=== PATIENT | male | born 1945 | race Caucasian/White ===

== ENCOUNTER 2020-09-12 14:29 | Inpatient (IN) | payer MEDICARE, SELFPAY ==
[2020-09-12] VITALS (8 sets, daily range): BP systolic 172–200; BP diastolic 79–97; PULSE 73–88; RESP 16–18; TEMP 36.2–37; O2SAT 98–99; BMI 25.0
--- NOTE | 2020-09-12 15:23 | ED_ITS ---
HPI - General Adult General Chief complaint: Recheck/Abnormal Lab/Rx Stated complaint: ABNORMAL MRI Time Seen by Provider: 09/12/20 14:39 Source: patient Mode of arrival: ambulatory Limitations: no limitations History of Present Illness HPI narrative: 75-year-old male with past medical history of right hip replace ment, renal colic here with abnormal MRI. Patient tells me for the last 4-5 weeks he has had intermittent blurry vision. He was seen by his doctor and then by his primary care doctor. His primary care doctor ordered an outpatient MRI which he had this morning. The patient tells me that after his MRI was completed he was sent from the department to the emergency department for further evaluation. The patient denies any dizziness, headache, nausea, vomiting, vision changes at this time. He tells me that the vision changes occur intermittently and are blurry. Onset (ago): week(s) Radiation: non-radiation Relieving factors: none Exacerbating factors: none Associated symptoms: denies other symptoms Treatments prior to arrival: none Related Data Home Medications Medication Instructions Recorded Confirmed fluorometholone 1 drp OPHTHALMIC (EYE) BID PRN 09/12/20 09/12/20 Allergies Allergy/AdvReac Type Severity Reaction Status Date / Time No Known Allergies Allergy Mild NO Verified 09/12/20 14:53 Review of Systems Review of Systems: Yes all other systems are reviewed and are negative Constitutional: Constitutional: Reports no additional constitutional complaints, Denies body ache(s), Denies chills, Denies fever(s), Denies headache(s) and Denies weakness Eyes: Eyes: Reports no additional eye complaints, Reports blurry vision, Reports change in vision, Denies decreased night vision, Denies diplopia, Denies eye discharge, Denies loss of peripheral vision, Denies loss of vision and Denies other visual disturbances ENT: Reports system reviewed and no additional complaints, except as documented, Denies dizziness, Denies headache(s), Denies nasal congestion, Denies nasal discharge and Denies neck pain Cardiovascular: Cardiovascular: Reports no additional cardiovascular complaints, Denies chest pain, Denies leg edema and Denies dyspnea Respiratory: Respiratory: Reports no additional respiratory complaints, Denies cough and Denies dyspnea Gastrointestinal: Gastrointestinal: Reports no additional gastrointestinal complaints, Denies abdominal pain, Denies diarrhea, Denies nausea and Denies vomiting Genitourinary: Genitourinary: Denies urinary incontinence Musculoskeletal: Musculoskeletal: Reports no additional musculoskeletal complaints, Denies back pain, Denies arthralgias, Denies joint swelling, Denies neck pain, Denies numbness and Denies tingling Integumentary/Breasts: Skin/Breast: Reports system reviewed and no additional complaints, except as docu and Denies rash Neurologic: Reports system reviewed and no additional complaints, except as documented, Denies Abnormal speech present, Denies dizziness, Denies headache(s), Denies loss of vision, Denies numbness, Denies tingling and Denies weakness [facility] Past Medical History Attestation statement: The following information was validated with the patient. Source: obtained from family and nursing notes reviewed Medical History (Updated 09/12/20 @ 16:16 by Savannah Aquino NP) Hip replacement planned Renal colic Social History Social History Smoked in Last 30 Days: No Use of substances other than those prescribed or required for medical reasons: No Advance Directives: No Advance Directives Information Provided: Yes Physical Exam Vital Signs: Vital Signs: Last Vital Signs Temp 98.6 F 09/12/20 14:50 Pulse 78 09/12/20 15:45 Resp 16 09/12/20 15:45 BP 172/79 H 09/12/20 15:45 Pulse Ox 98 09/12/20 15:45 Body Mass Index 25.0 Const: General: cooperative, healthy appearing, comfortable and no acute distress Orientation/consciousness: patient oriented x3 Limitations: no limitations HENMT: Head: Yes normal to inspection Ears: hearing grossly normal bilaterally General nose exam: Normal external nose present Face and sinus: Yes normal facial exam Mouth: Normal oral and palatal mucosa present Throat: Yes posterior oropharynx normal Eyes: General: appearance normal, both eyes and all related structures Visual Pradhan: normal visual pradhan by confrontation Alignment and Position: alignment normal Eyelids: Yes eyelids normal Conjunctivae: conjunctivae normal Sclerae: sclerae normal Corneas: corneas normal Pupils: Equal, round and reactive pupils present EOM: EOMs intact bilaterally Neck: Neck: Yes normal visual inspection Chest: Chest palpation & inspection: normal inspection of the chest Resp: Effort & Inspection: normal respiratory effort Auscultation: clear to auscultation bilaterally Cardio: Rate: regular rate Rhythm: regular rhythm Peripheral pulses: Peripheral pulses 2+ throughout GI: Inspection: Yes normal to inspection Palpation (GI): Soft to palpation and nontender Auscultation: normal bowel sounds Back/Spine/Pelvis: Thoracic/Lumbar Spine: thoracic and lumbar spine normal to inspection Skin: General skin exam: no rashes or lesions noted Neuro: General: patient oriented x3, no focal motor deficits and normal sensation to monofilament Cranial nerves: Yes CN's II-XII intact bilaterally, Yes Equal, round and reactive pupils present, Yes Bilaterally intact EOM present, Yes Nystagmus not present, Yes Normal facial strength present, Yes Midline tongue present and Yes Normal gag reflex present Cognition (Neuro): normal cognition Speech: No Abnormal speech present Gait exam (Neuro): Normal gait present Motor exam (neuro): 5/5 motor strength present throughout Sensory Exam: Normal double simultaneous stimulation for sensation Coordination: [id number] test normal, [id number] test normal and tandem gait normal Extrem: General: Yes normal to inspection NIH Stroke Scale Internal: Initial- Upon Arrival Level of Consciousness: Alert Level of Consciousness Questions: Answers both questions correctly Level of Consciousness Commands: Performs both tasks correctly Best Gaze: Normal Visual: No visual loss Facial Palsy: Normal Motor Arm (Right): No drift Motor Arm (Left): No drift Motor Leg (Right): No drift Motor Leg (Left): No drift Limb Ataxia: Absent Sensory: Normal Best Language: No aphasia Dysarthia: Normal Extinction and Inattention: No abnormality Score: 0 Course Course Course Narrative: 75-year-old male here with abnormal MRI which was ordered as an outpatient for intermittent episodes of blurry vision over the last 5-6 weeks. Per MRI report 1. Right occipital lobe 1.4cm lesion which demonstrates restricted diffusion, differential considerations include cystic/hemorrhagic metastases, abscess. Recommend evaluation with neurology, consider MRI brain with IV contrast and/or CT noncontrast. 2. Punctuate scattered foci of susceptibility throughout the brain parenchyma, differential considerations include amyloid disease, multiple cavernoma syndrome, old hemorrhagic hemorrahgic metstasis. 3. 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 1530- Patient is neurologically intact. He has no deficits on arrival. He is well appearing stable vital signs. He has some mild hypertension but is very anxious about why he is here. I discussed the patient with Dr. Ridley the neurologist. He recommended admission for further workup. At this time he did not want me to order any additional images but will evaluate the patient as a consult. He does not believe the patient needs requires transfer to a tertiary care center at this time. Labs ordered. Rapid COVID test ordered. Discussed with Dr. Chatman is who accepted admission. 1605-IAN. NSB ordered. Hospitalist to follow. Called imaging center to get copy of disc (administrative secretary left message). Unable to get imaging sent through [facility]. Medical Decision Making Medical Records Medical records reviewed: Yes I reviewed the patient's medical records. Lab Data Lab results reviewed: Yes I reviewed the patient's lab results. Result diagrams: 09/12/20 15:25 09/12/20 15:25 Labs: Lab Results 09/12/20 09/12/20 09/12/20 Range/Units 15:25 15:25 15:25 WBC 10.2 (4.8-10.8) X10*3/uL RBC 4.27 L (4.60-5.80) X10*6/uL Hgb 14.5 (14.0-18.0) g/dl Hct 41.9 L (42-52) % MCV 98.1 H (80-98) fL MCH 34.0 H (27.0-33.0) pg MCHC 34.6 (31.0-36.0) g/dl RDW 11.5 (11.0-16.0) % Plt Count 219 (160-400) X10*3/uL MPV 9.7 (9.4-12.4) fL Immature Gran % (Auto) 0.4 (0.0-0.4) % Neut % (Auto) 75.6 H (45-73) % Lymph % (Auto) 13.4 L (20-40) % [place] % (Auto) 9.1 (2-11) % Eos % (Auto) 1.1 (0-4) % Baso % (Auto) 0.4 (0-2) % Lymph # (Auto) 1.4 (1.2-4.9) X10*3/uL [place] # (Auto) 0.9 (0.1-1.2) X10*3/uL Eos # (Auto) 0.1 (0.0-0.4) X10*3/uL Baso # (Auto) 0.0 (0.0-0.2) X10*3/uL Abs Immat Gran (auto) 0.04 H (0.00-0.03) X10*3/uL Absolute Neuts (auto) 7.8 (2.0-8.3) X10*3/uL Absolute Nucleated RBC 0.000 (0.0-0.012) X10*3/uL Nucleated RBC % (auto) 0.0 (0.0-0.2) /100WBC Sodium 137 (135-145) mmol/L Potassium 4.5 (3.3-5.1) mmol/l Chloride 100 (96-108) mmol/L Carbon Dioxide 28 (22-29) mmol/L Anion Gap 14 (12-20) BUN 31 H (9-16) mg/dL Creatinine 1.85 H (0.5-1.4) mg/dL Estim Creat Clear Calc 31.2 Estimated GFR 36 Random Glucose 88 (60-115) mg/dL Calcium 8.9 (8.4-10.2) mg/dL COVID-19 (DAVID) Negative (Negative) COVID-19 Clin Com See Note Discharge Plan Discharge Clinical Impression: Abnormal MRI of head, IAN (acute kidney injury) Patient Disposition: Admitted As Inpatient
[2020-09-12 15:32] LABS: MANUAL DIFF FLAG NO
[2020-09-12 15:38] LABS: Basophils Percent Auto 0.4 % (0-2); Eosinophils Absolute Auto 0.1 X10*3/uL (0.0-0.4); Eosinophils Percent Auto 1.1 % (0-4); Hematocrit 41.9 % (42-52); Hemoglobin 14.5 g/dl (14.0-18.0); Imm Gran Abs Auto 0.04 X10*3/uL (0.00-0.03); Imm Gran Pct Auto 0.4 % (0.0-0.4); Lymphocytes Absolute Auto 1.4 X10*3/uL (1.2-4.9); Lymphocytes Percent Auto 13.4 % (20-40); Mean Corpuscular HGB Conc 34.6 g/dl (31.0-36.0); Mean Corpuscular Volume 98.1 fL (80-98); Mean Platelet Volume 9.7 fL (9.4-12.4); Monocytes Absolute Auto 0.9 X10*3/uL (0.1-1.2); Monocytes Percent Auto 9.1 % (2-11); Neutrophils Absolute Auto 7.8 X10*3/uL (2.0-8.3); Neutrophils Percent Auto 75.6 % (45-73); Platelet Count 219 X10*3/uL (160-400); Red Blood Count 4.27 X10*6/uL (4.60-5.80); Red Cell Distribution Width 11.5 % (11.0-16.0); White Blood Count 10.2 X10*3/uL (4.8-10.8)
[2020-09-12 15:50] LABS: COVID-19 Test Negative (Negative)
[2020-09-12 15:57] LABS: Anion Gap 14 (12-20); Blood Urea Nitrogen 31 mg/dL (9-16); Calcium 8.9 mg/dL (8.4-10.2); Carbon Dioxide 28 mmol/L (22-29); Chloride 100 mmol/L (96-108); Creatinine Clr Calc Pharmacy 31.2; Estimated Glomerular Filt Rate 36; Glucose Random 88 mg/dL (60-115); Potassium 4.5 mmol/l (3.3-5.1); Sodium 137 mmol/L (135-145)
[2020-09-12] MEDS: 0.9 % Sodium Chloride 1,000 ML 999 ML IV (16:13)
[2020-09-12] MEDS: amLODIPine Besylate 5 MG TABLET PO (16:57)
--- NOTE | 2020-09-12 16:59 | PC.NURSE ---
x1 call for report
--- NOTE | 2020-09-12 17:38 | PC.NURSE ---
x2 call for report, jessica martinez states she will call back
--- NOTE | 2020-09-12 17:43 | PC.NURSE ---
report given to jessica martinez on [facility]
--- NOTE | 2020-09-12 19:05 | HP_ITS ---
DATE OF SERVICE: 09/12/2020 CHIEF COMPLAINT: Abnormal MRI study obtained on 09/12/2020. HISTORY OF PRESENTING ILLNESS: This is a very pleasant 75-year-old gentleman with past medical history significant for remote renal stones as well as history of right hip placement. He has been complaining of 3 weeks of difficulty on focusing while reading where he noticed that the words were moving. Therefore, he was seen by [facility]. He gave him some eyedrops. His symptoms seems to improve a little bit, but since he also developed right-sided lower back pain, he was seen by his primary care physician and he complained to them about the visual symptoms as well as back pain. Therefore, an MRI brain without contrast was obtained. The MRI showed that the patient has 1.4 cm right occipital lobe lesion with a wide differential diagnosis including hemorrhagic metastasis, abscess, further evaluation is recommended with an MRI brain with IV contrast. There are also punctate scattered foci of susceptibility throughout the brain parenchyma. 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 The patient's laboratory data also showed that he had an elevated creatinine of 1.85 with no recent creatinine available. The patient admitted that he has been using Advil twice daily for his lower back pain with good relief in symptoms and sometimes he takes Tylenol and a strong pain medication that he cannot recall the name. Other than that, the patient denies any symptoms of headache, dizziness, no fever, chills. He denies any weight loss. Denies any loss of appetite. He has no other neurological deficits. PAST MEDICAL HISTORY: Significant for history of right hip replacement in July of 2018. He had a right inguinal hernia in November of 2015. He has erectile dysfunction. He has history of sebaceous cyst. He has history of prior kidney stone and lithotripsy. SOCIAL HISTORY: He is a former smoker. He denies alcohol abuse. The patient is a retired pre school teacher. FAMILY HISTORY: There is a family history of coronary artery disease in his brother. The patient's father is a world war 2 . He is diseased. CURRENT MEDICATIONS: He has been using eye drops in both eyes. Does not recall the name. ALLERGIES: THE PATIENT HAS NO KNOWN DRUG ALLERGIES. REVIEW OF SYSTEMS: ETL CONSULTANT: The patient denies any headache, lightheadedness, or dizziness. He denies any visual symptoms at the present time. He denies any complete loss of vision. He denies any blurring of vision. CVS: He denies any chest pain, denies palpitation. RESPIRATORY: He denies any cough or sputum production. GASTROINTESTINAL: He denies any nausea. No vomiting. No weight loss. No change in diet. SKIN: He denies any rashes. MUSCULOSKELETAL: He complains of right lower back discomfort on and off for the last couple of weeks with good relief with analgesics. : He denies any urinary symptoms. LABORATORY DATA: Showed a sodium 137, potassium 4.5, BUN 31, and creatinine 1.85, GFR 36, blood sugar 88. The patient's WBC is 10.2, hematocrit 41.9. MCV elevated at 98. Serology: COVID-19 test is negative. PHYSICAL EXAMINATION: GENERAL: The patient is resting comfortably, does not appear to be in acute distress. VITAL SIGNS: The patient is noted to have elevated blood pressure. On arrival it was 183/97, currently 172/79; his pulse is 78; respiratory rate 16; he is afebrile with a finger oximetry of 98 on room air. HEENT: Pupils equal, round, and reactive to light and accommodation. Extraocular muscles intact. Anicteric sclerae. NECK: Supple. No JVD. LUNGS: Clear to auscultation bilaterally. HEART: Regular rate rhythm with no murmur, regurg or gallop. ABDOMEN: Soft, nontender. Bowel sounds are audible. No guarding, no rigidity. EXTREMITIES: Without clubbing, cyanosis, or edema. SKIN: Without any rashes. NEUROLOGIC: Nonfocal. Speech is clear. No pronator drift. Normal strength both upper and lower extremities. SKIN: With no rash. ASSESSMENT AND PLAN: This is a 75-year-old gentleman with past medical history significant for kidney stones, who presented to [facility] with 3 weeks history of unable to focus while reading due to words moving with no loss of vision. No other neuro deficit. The patient's workup including an MRI revealed that the patient has 1.4 cm lesion at the right occipital lobe. The patient laboratory data showed that he is in acute renal failure and vitals are suggestive of elevated blood pressure. PROBLEM LIST: 1. Acute kidney injury. The patient's acute kidney injury is likely related to use of NSAIDs, question longstanding uncontrolled hypertension , will obtain abdominal ultrasound to rule out obstruction. The patient will be treated with IV fluid. We will avoid all NSAIDs and nephrotoxic medications. We will treat the patient's blood pressure and follow renal function closely, will consult Nephrology with no improvement in renal function. 2. Hypertension. The patient has no diagnosis of hypertension. If blood pressure remains elevated, patient will be placed on Norvasc and follow blood pressure closely. 3. Right occipital lobe lesion with difficulty focusing. We will await neurological input for further testing. We will hold off on MRI brain with IV contrast due to acute renal failure. will follow renal function closely. 4. Deep vein thrombosis prophylaxis. The patient will be placed on compression boots. 5. Right-sided lower back pain. Currently, patient is asymptomatic. We will use Tylenol and oxycodone for severe pain. We will check a urinalysis with prior history of kidney stone , check a renal ultrasound for obstruction, If UA is positive, then we will proceed with further testing. MD JENNA Mackay/NICOLAS / [id number] MTDD
[2020-09-12] MEDS: hydrALAZINE HCl 25 MG TABLET PO (20:15)
[2020-09-12] MEDS: Flu Vacc QS2020-21(6mos up)/PF 0.5 ML SYRINGE IM (20:17)
[2020-09-12] MEDS: 0.9 % Sodium Chloride Flush 3 ML SYRINGE IVFLUSH (20:17)
[2020-09-13] VITALS (10 sets, daily range): BP systolic 149–179; BP diastolic 65–88; PULSE 73–97; RESP 17–18; TEMP 36–36.6; O2SAT 97–100
--- NOTE | 2020-09-13 | CT_ITS ---
EXAMINATION: CT ABDOMEN AND PELVIS WITHOUT CONTRAST CLINICAL INFORMATION: Right hydronephrosis COMPARISON: Ultrasound earlier the same day. CT 10/07/2008 TECHNIQUE: Multidetector volumetric imaging was performed from the superior aspect of the liver through the pubic symphysis. Sagittal and coronal reformatted images were obtained on the technologist's workstation. This CT examination was performed using dose optimization techniques as appropriate, variously including the following: *Automated exposure control *Adjustment of mA and/or kV according to patient size (this includes techniques or standardized protocols for targeted exams where dose is matched to indication/reason for exam; i.e. extremities or head) *Use of iterative reconstruction technique DLP: 566 mGy-cm FINDINGS: The lack of intravenous contrast limits evaluation of the solid visceral organs including the liver, spleen, pancreas, and kidneys. LUNG BASES: The visualized lung bases are unremarkable. LIVER, GALLBLADDER, AND BILIARY TREE: There are coarse calcifications inferiorly in the right lobe of liver. Limited noncontrast evaluation shows no gross focal liver lesion or biliary ductal dilatation. The gallbladder is unremarkable with no evidence of radiopaque gallstones, gallbladder wall thickening, or obvious pericholecystic inflammatory changes. PANCREAS: Limited non-contrast evaluation is normal. No tess-pancreatic fluid. SPLEEN: Limited non-contrast evaluation is normal. ADRENAL GLANDS: Normal; no adrenal mass. KIDNEYS AND URETERS: Multiple bilateral renal calculi are present the largest on the right is a 6 mm right mid-upper renal calculus. Largest on the left measures 4 mm. There is moderate right hydroureteronephrosis with the dilated right proximal ureter followed to a 6 mm transaxial by 7 mm craniocaudal right proximal ureteral calculus. GASTROINTESTINAL TRACT: The stomach and small bowel are nondilated. There is severe sigmoid diverticulosis. No evidence of colitis or diverticulitis. Appendix not seen but there are no right lower quadrant inflammatory changes. ABDOMINAL WALL: No hernia seen. LYMPH NODES: No pathologically enlarged lymph nodes in the abdomen or pelvis. VASCULAR: Normal caliber abdominal aorta. Circumferential calcified atherosclerotic changes are present. BLADDER: No calculi. No focal wall thickening. PELVIC VISCERA: Coarse calcifications in the prostate. The prostate is enlarged measuring 5 x 3.6 cm. OSSEOUS STRUCTURES: Multilevel degenerative changes. No acute or suspicious osseous abnormality. Right total hip arthroplasty. CT/CT abdomen pelvis wo con IMPRESSION: 6 mm transaxial by 7 mm craniocaudal obstructing right proximal ureteral calculus results in moderate right hydroureteronephrosis. Additional bilateral nonobstructing renal calculi are seen, a 6 mm on the right, 4 mm on the left. Stone to skin distance on the right is 9.3 cm, 12.5 cm on the left. The ureteral calculus as density 1135 Hounsfield units.
--- NOTE | 2020-09-13 | US_ITS ---
EXAMINATION: US RETROPERITONEAL LIMITED (RENAL ONLY) CLINICAL INFORMATION: Flank pain. COMPARISON: Previous CT of the abdomen and pelvis September 2008 TECHNIQUE: Grayscale and color imaging of the kidneys FINDINGS: RIGHT KIDNEY: 10.9 x 6.4 x 6.9 cm (SAG x AP x TRV). The kidney is normal in size, contour, and echogenicity. Renal cortical thickness is normal. There are multiple right renal stones measuring 7 mm in the upper pole, 5 x 6 mm in the midpole and 2 x 3 mm in the midpole. There is moderate right hydronephrosis. No renal mass is seen. LEFT KIDNEY: 11.7 x 5 x 4.9 cm (SAG x AP x TRV). The kidney is normal in size, contour, and echogenicity. Renal cortical thickness is normal. No calculi or focal parenchymal lesions. No hydronephrosis. A right ureteral jet is not seen in the bladder. A left ureteral jet is seen. There are gallstones. US/US renal BI IMPRESSION: Right renal stones. Moderate right hydronephrosis. Normal left kidney.
[2020-09-13 06:52] LABS: Prothrombin Time 11.4 SEC (10.8-13.0)
[2020-09-13 07:06] LABS: Anion Gap 12 (12-20); Blood Urea Nitrogen 27 mg/dL (9-16); Calcium 8.9 mg/dL (8.4-10.2); Carbon Dioxide 29 mmol/L (22-29); Chloride 104 mmol/L (96-108); Creatinine Clr Calc Pharmacy 31.6; Estimated Glomerular Filt Rate 36; Glucose Random 80 mg/dL (60-115); Potassium 4.7 mmol/l (3.3-5.1); Sodium 140 mmol/L (135-145)
[2020-09-13] MEDS: hydrALAZINE HCl 25 MG TABLET PO ×3 (07:50→20:49)
[2020-09-13] MEDS: 0.9 % Sodium Chloride Flush 3 ML SYRINGE IVFLUSH ×3 (07:50→23:55)
[2020-09-13] MEDS: amLODIPine Besylate 5 MG TABLET PO (09:34)
--- NOTE | 2020-09-13 09:56 | MHC.CM.PN ---
IMM 09/13/20 MALE 75 DX OCCIPITAL LESION. Pt has been a very active 75 yr old. He reports golfing several times a week. The Patient reports a few weeks ago he began to have visual changes. He is also reporting back pain. Pt is scheduled for .S. today to R/O renal stones. MRI with contrat of Brain is on hold due to renal function. Provided HCP info, document complete and on file. DP home no services F/O with Neuro. His family will provide transport to home at [place]. CM will follow.
[2020-09-13] MEDS: Acetaminophen 325 MG TABLET 650 MG PO ×2 (11:04→20:46)
[2020-09-13 11:29] LABS: Glucose Urine UA NEG (NEG); Leukocyte Esterase Urine NEG (NEG); Nitrite Urine NEG (NEG); Urine Blood NEG (NEG); Urine Ketones NEG (NEG); Urine Protein NEG (NEG-TRACE)
[2020-09-13 11:30] LABS: Appearance Urine CLEAR; Color Urine YELLOW
--- NOTE | 2020-09-13 14:55 | PM.PNNEP ---
Subjective Subjective Date of Service: 09/13/20 Interval history: Patient seen and examined full consult dictated Physical Exam Vital Signs: Vital Signs: Last Vital Signs Temp 97.5 F 09/13/20 10:53 Pulse 90 09/13/20 10:53 Resp 18 09/13/20 10:53 BP 150/83 H 09/13/20 10:53 Pulse Ox 100 09/13/20 10:53 Body Mass Index 25.0 Assessment & Plan Assessment and plan (1) IAN (acute kidney injury): Status: Acute (2) Hydronephrosis: Status: Acute Assessment and Plan: IAN multifactorial: -NSAID nephrotoxicity -obstructive uropathy kidney US showed moderate hydronephrosis ? nephrolithiasis unknown baseline serum creatinine REC urology evaluation CT scan of the abdomen follow kidney function and electrolytes Time Spent With Patient Time: Total time spent is greater than 50% in coordination of care (as documented) at patient's floor/unit and/or counseling patient:
--- NOTE | 2020-09-13 15:58 | P.PNIM_ITS ---
Subjective Subjective Date of Service: 09/13/20 Interval History: patient offers no acute complaints, concerns that he never had high blood pressure before, denies visual symptoms , no headache, no weakness. Review of Systems General no headache, no dizziness no fever, chills. CVS no chest pain, no palpitation. Respiratory no cough, no shortness of breath. Gastrointestinal no nausea, no vomiting, no abdominal pain Physical Exam Vital Signs: Vital Signs: Last Vital Signs Temp 97.8 F 09/13/20 15:49 Pulse 82 09/13/20 15:50 Resp 18 09/13/20 15:49 BP 162/80 H 09/13/20 15:50 Pulse Ox 97 09/13/20 15:49 Body Mass Index 25.0 General patient resting comfortably,no acute distress. Neck supple, no JVD. CVS regular rate rhythm, Respiratory lungs clear to auscultation, no respiratory distress Gastrointestinal abdomen soft, nontender, bowel sounds audible. Extremities no clubbing, no cyanosis or edema. Neuro nonfocal Skin no rash Objective Data Current Medications Generic Name Dose Route Start Last Admin Trade Name Freq PRN Reason Stop Dose Admin Acetaminophen 650 mg 09/12/20 17:45 09/13/20 11:04 Acetaminophen 325 Mg Tablet PO 650 mg Q6H PRN Administration Pain, Mild (Pain Scale 1-3) Amlodipine Besylate 5 mg 09/13/20 09:00 09/13/20 09:34 Amlodipine Besylate 5 Mg Tablet PO 5 mg DAILY [facility] Administration Protocol Hydralazine HCl 25 mg 09/12/20 21:00 09/13/20 15:50 Hydralazine Hcl 25 Mg Tablet PO 25 mg TID [facility] Administration Protocol Non-Formulary Medication 1 drop 09/12/20 21:00 Fluorometholone EYE-BOTH BID PRN BLURRY VISION Ondansetron HCl 4 mg 09/12/20 17:45 Ondansetron Hcl 4 Mg/2 Ml Vial IVPUSH Q8H PRN Nausea and Vomiting Oxycodone HCl 5 mg 09/12/20 17:45 Oxycodone Hcl Immed Release 5 Mg Tablet PO Q6H PRN Pain, Severe (Pain Scale 7-10) Pharmacy Consult 1 each 09/12/20 15:13 Consult Rx Perform Med Rec MISCELLANE ONCE PRN Consult order Sodium Chloride 3 ml 09/13/20 00:00 09/13/20 15:51 0.9 % Sodium Chloride Flush 3 Ml Syringe IVFLUSH 3 ml QSHIFT ZION Administration Labs CBC & Chem 7: 09/12/20 15:25 09/13/20 05:39 Assessment and Plan (1) Hydronephrosis: Status: Acute (2) IAN (acute kidney injury): Status: Acute (3) Abnormal MRI of head: Status: Acute (4) Hypertension: Status: Acute Assessment and Plan: 1. Acute kidney injury. creatinine unchanged, likely due to use of NSAIDs and an abdominal ultrasound showed right hydronephrosis suggesting obstructive uropathy patient seen by Nephrology, further workup ordered will obtain Urology consultation for right hydro and renal stone, will avoid nephrotoxins and NSAIDs follow renal function. 2. Uncontrolled Hypertension. patient has no diagnosis of hypertension systolic BP significantly elevated around 200 patient started on Norvasc 5 mg and hydralazine 25 mg t.i.d. follow BP closely and will further adjust the medications. 3. Right occipital lobe lesion with difficulty focusing. await neurological input for further testing. We will hold off on MRI brain with IV contrast due to acute renal failure. will follow renal function closely. 4. Right hydronephrosis with intermittent Right-sided lower back pain. Currently, patient is asymptomatic, use Tylenol and oxycodone for severe pain. UA revealed no RBC, renal ultrasound showed right hydronephrosis and renal stone will consult urology. 5. DVT prophylaxis with compression boots
--- NOTE | 2020-09-13 17:04 | P.CNNE_ITS ---
History of Present Illness Data of Consult Service Date: 09/13/20 Primary Care Provider: Erika Mclain MD [facility] Reason for consult: Transient visual disturbance with inability to read This is a generally healthy 75-year-old man with a history of kidney stones and a hip replacement, who stays active plays golf 3 days a week and exercises. He is also an avid reader. In the last 4 or 5 years, he has had a few episodes, averaging 3 or 4 times per year, where his vision was blurred for about 15 or 20 minutes when he was trying to read or he may get some visual distortion when he is trying to drive his golf ball which appears distorted. This is particularly if the weather is hot. These episodes lasted a few minutes and then resolved. 3 weeks ago he noticed a sudden difficulty in reading which persisted longer than usual. He did not see a doctor immediately. Around the same time, he developed symptoms of a right renal colic which he identified as renal stones because he had experienced them 7 years earlier. He has continued to have some minor visual disturbance although most of the vision has improved. In the last few days, while driving he noticed suddenly traffic on the oncoming side to his left was almost on top of him and that was a matter of concern. Yesterday, he had an MRI of the brain on 09/12/20 which showed a 1.5 cm right occipital lobe lesion which showed some hemorrhagic changes and possibly some cystic changes raising the possibility of metastases or abscess. There was a left occipital lesion which appeared to be chronic hemorrhagic with hemosiderin. 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 The actual disc was not available for review. The patient was sent to the [facility] and admitted. He feels fine and is able to read but he feels sometimes the words ge t jumbled and he has some transient visual disturbances off and on. He has no headache. There is no weakness or numbness. He takes no medication at home other than ibuprofen which he has been taking for his hip pain. On admission his BUN/creatinine were elevated but his bloodwork was otherwise unremarkable. Renal ultrasound showed multiple kidney stones in the right kidney and moderate hydronephrosis on the right Review of Systems Constitutional: Constitutional: Denies headache(s) and Denies weakness Eyes: Eyes: Denies loss of vision ENT: Reports Normal hearing present, Denies dizziness and Denies headache(s) Cardiovascular: Cardiovascular: Reports no additional cardiovascular complaints Respiratory: Respiratory: Reports no additional respiratory complaints Gastrointestinal: Gastrointestinal: Reports no additional gastrointestinal complaints Genitourinary: Genitourinary: Reports no additional male genitourinary complaints Musculoskeletal: Musculoskeletal: Denies numbness and Denies tingling Integumentary/Breasts: Skin/Breast: Reports system reviewed and no additional complaints, except as docu Neurologic: Reports system reviewed and no additional complaints, except as documented, Reports Normal hearing present, Denies Abnormal speech present, Denies dizziness, Denies headache(s), Denies loss of vision, Denies numbness, Denies tingling and Denies weakness Psychiatric: Psychiatric: Reports as per HPI Endocrine: Endocrine: Reports no additional endocrine complaints Hematologic/Lymphatic: Hematologic/Lymphatic: Reports no additional hematologic/lymphatic complaints Allergic/Immunologic: Allergic/Immunologic: Reports no additional allergic/immunologic complaints [facility] Past Medical History Medical History (Updated 09/13/20 @ 17:15 by Alyson Louise MD) Hip replacement planned Renal colic Social History Social History Household Members: None Housing: Other Housing Other:: [facility] Do you presently have visiting nurse or other home services: No Smoking Status: Former smoker Tobacco Type: Cigarette Smoked in Last 30 Days: No Use of substances other than those prescribed or required for medical reasons: No Currently Displaying Signs/Symptoms of Drug Intoxication Withdrawal: No Have you been hit, kicked, punched, or otherwise hurt by someone within the past year? If so, by whom?: No Do you feel safe in your current relationship?: No Is there a partner from a previous relationship who is making you feel unsafe now?: No Are you made to feel afraid or neglected: No Advance Directives: No Advance Directives Information Provided: Yes Do you have thoughts of harming others: None Do you have a plan to hurt others: No Plan Recently lost weight without trying: No service: No Current occupational status: retired [employer] Allergies Allergy/AdvReac Type Severity Reaction Status Date / Time No Known Allergies Allergy Mild NO Verified 09/12/20 14:53 Home Medications Medication Instructions Recorded Confirmed Type fluorometholone 1 drp OPHTHALMIC (EYE) BID PRN 09/12/20 09/12/20 History Physical Exam Vital Signs: Vital Signs: Last Vital Signs Temp 97.8 F 09/13/20 15:49 Pulse 82 09/13/20 15:50 Resp 18 09/13/20 15:49 BP 162/80 H 09/13/20 15:50 Pulse Ox 97 09/13/20 15:49 Body Mass Index 25.0 Const: General: cooperative, comfortable, no acute distress, well developed, alert and awake Nutritional Appearance: well nourished Orientation/consciousness: oriented to person, oriented to place and oriented to time Limitations: no limitations HENMT: Head: Yes normal to inspection, Yes normocephalic and Yes atraumatic Ears: hearing grossly normal bilaterally General nose exam: Normal external nose present Face and sinus: Yes normal facial exam Mouth: Normal oral and palatal mucosa present Eyes: General: appearance normal, both eyes and all related structures Visual Pradhan: normal visual pradhan by confrontation Alignment and Position: alignment normal Periorbital: periorbital findings normal Eyelids: Yes eyelids normal Conjunctivae: conjunctivae normal Sclerae: sclerae normal Corneas: corneas normal Pupils: Equal, round and reactive pupils present and Pupil accommodation reflex normal EOM: EOMs intact bilaterally Direct Ophthalmoscopy: normal light reflex Neck: Neck: Yes normal visual inspection, Yes full ROM and Yes no meningeal signs Thyroid: Thyroid normal Carotids: normal carotid upstroke and bounding pulses Chest: Chest palpation & inspection: normal inspection of the chest Resp: Effort & Inspection: normal respiratory effort Auscultation: clear to auscultation bilaterally Cardio: Rate: regular rate Rhythm: regular rhythm Heart sounds: S1 normal heart sound present and S2 normal heart sound present Peripheral pulses: Peripheral pulses 2+ throughout GI: Inspection: Yes normal to inspection Percussion: Yes normal to percussion Auscultation: normal bowel sounds Rectal Exam - Male: Yes deferred Back/Spine/Pelvis: Cervical Spine: normal cervical lordosis and cervical ROM normal Thoracic/Lumbar Spine: thoracic and lumbar spine normal to inspection Skin: General skin exam: no rashes or lesions noted Neuro: General: oriented to person, oriented to place, oriented to time, gait normal, tone normal, moves all extremities, Normal light touch and pain sensation, no meningeal signs, no focal motor deficits, CN's II-XI intact bilaterally, normal sensation to monofilament and deep tendon reflexes 2+ bilaterally Cranial nerves: Yes CN's II-XII intact bilaterally, Yes Equal, round and reactive pupils present, Yes Bilaterally intact EOM present, Yes Nystagmus not present, Yes Normal facial strength present, Yes Midline tongue present, Yes Normal gag reflex present, Yes Symmetric palate elevation present, Yes Normal hearing present and Yes Ability to bilaterally rotate head present Cognition (Neuro): normal cognition Speech: No Abnormal speech present Gait exam (Neuro): Normal gait present Motor exam (neuro): 5/5 motor strength present throughout, Pronator motor function not present, no tremor noted, no asterixis, Motor fasciculations not present, Normal motor muscle tone present throughout and Motor abnormalities not present Sensory Exam: Bilaterally intact graphesthesia Deep tendon reflexes (DTR's): Right triceps reflex intensity grade: 2+, Left triceps reflex intensity grade: 2+, Rt Biceps (C5, C6): 2+, Left biceps reflex intensity grade: 2+, Right brachioradialis reflex intensity grade: 2+, Left brachioradialis reflex intensity grade: 2+, Right patellar reflex intensity grade: 2+, Left patellar reflex intensity grade: 2+, Right ankle reflex intensity grade: 2+ and Left ankle reflex intensity grade: 2+ Plantar Reflex Responses: downgoing: right, left and bilateral Coordination: [id number] test normal, [id number] test normal, tandem gait normal and Romberg test negative Pupils: Normal pupillary reactivity/response: bilateral Extrem: General: Yes normal to inspection, Yes normal exam except as noted and Yes no pedal edema Psych: Appearance: grossly normal Mental Status: mental status grossly normal Speech and movement: Normal speech and movement present and Clear speech present Affect: normal affect Attitude: cooperative Thought process: Normal thought process present Results Labs CBC & Chem 7: 09/12/20 15:25 09/13/20 05:39 Labs: BMP 09/13/20 05:39 Sodium 140 Potassium 4.7 Chloride 104 Carbon Dioxide 29 BUN 27 H Creatinine 1.83 H Calcium 8.9 Urine 09/13/20 Range/Units 10:56 Urine Color YELLOW Urine Appearance CLEAR Urine pH 6.0 (5.0-8.0) Ur Specific [place] 1.020 (1.005-1.025) Urine Protein NEG (NEG-TRACE) MG/DL Urine Glucose (UA) NEG (NEG) MG/DL Assessment and Plan (1) Cerebral hemorrhage: Problem details: Probable occipital lobe hemorrhage 10 which is more recent than 1 chronic suggesting Cerebral amyloid Angiopathy. Other lesion such as a cyst, metastatic or infectious etiology needs to be ruled out although appear less likely Status: Acute Followup MRI of the brain in one month including MRI brainwith gadolinium if his kidney functions have normalized (2) Abnormal MRI of head: Status: Acute Same as above (3) Hypertension: Problem details: Control Status: Acute Monitor and control blood pressure (4) Hydronephrosis: Status: Acute Urology consultation
--- NOTE | 2020-09-13 17:43 | CONS_ITS ---
DATE OF SERVICE: 09/13/2020 HISTORY OF PRESENT ILLNESS: This is a 75-year-old patient with no prior history of kidney disease except for a kidney stone, who presented to the hospital because of an abnormal MRI of the brain and was noted to have elevated serum creatinine. The patient's MRI showed a 1.4 cm right occipital lobe lesion. He denies any nausea, vomiting, or diarrhea. There is no report of chest pain or shortness of breath. He denies any weight loss, any change in color or appearance of the urine, has been no change in his appetite. The patient tells me that he has been taking Advil quite heavily, sometimes taking 3 to 4 tablets a day for at least 3 weeks. Ultrasound of the kidney showed moderate right hydronephrosis. PAST MEDICAL HISTORY: Remarkable for nephrolithiasis, hip replacement, inguinal hernia, erectile dysfunction. MEDICATIONS: Advil. SOCIAL HISTORY: Ex-smoker. FAMILY HISTORY: Negative for kidney disease. REVIEW OF SYSTEMS: 10-point review of systems is negative except as mentioned in the history of present illness. PHYSICAL EXAMINATION: VITAL SIGNS: Blood pressure is 150/83, heart rate 90, respiratory rate 18, temperature 97.5. CONSTITUTIONAL: Looks his stated age, in no acute distress. NEUROLOGIC: Alert, awake. HEENT: Head: Atraumatic and normocephalic. NECK: Supple. LUNGS: Good air entry bilaterally. CARDIOVASCULAR: S1, S2. No rub. ABDOMEN: Soft, nontender. EXTREMITIES: No peripheral edema. LABORATORY DATA: Showed a white count 10.2, hemoglobin 14.5, platelet count 219. Sodium 140, potassium 4.7, chloride 104, CO2 of 29, BUN 27, creatinine 1.83. Urine negative for protein. IMPRESSION: 1. Acute kidney injury. 2. Right hydronephrosis. 3. Nephrolithiasis. This is a patient with elevated serum creatinine consistent with acute kidney injury. I suspect he has acute kidney injury due to nonsteroidal anti-inflammatory drug, nephrotoxicity, in addition to a component of obstructive uropathy as suggested by the kidney ultrasound, which showed evidence for right hydronephrosis. I would avoid the use of NSAID and involve Urology. He would need a CT scan of the abdomen and we will continue to follow closely kidney function and electrolytes. Thank you for allowing me to participate in the care of this patient. Ascencion Fish MD GF/MODL / [id number]
--- NOTE | 2020-09-13 20:56 | MHC.STROKE ---
Addendum entered by Yane Delgado RN 09/13/20 21:04: NIHSS = 0, see Dr. Thompson's note for any additional recommendations. Assessed for Rehab, not indicated. Original Note: LATE ENTRY FOR 09/12/20 WALK-IN 1429. NOTIFIED BY JAYESH SAXENA, SHE CONTACTED DR MONTGOMERY. HE PASSED SWALLOW SCREEN AT 1643 PRIOR TO PO MEDICATION. VTE PROPHYLAXIS WITH COMPRESSION BOOTS 09/13/[address] THOMPSON. HE EXPLAINED THE ? CEREBRAL HEMORRHAGE IN THE OCCIPITAL AREA. STROKE EDUCATION PROVIDED. ALL STROKE MEASURES MET FOR ? HEMORRHAGIC STROKE UNDETERMINED ONSET TIME AND DATE.
[2020-09-14] VITALS (14 sets, daily range): BP systolic 138–172; BP diastolic 71–87; PULSE 71–87; RESP 13–20; TEMP 36.1–36.7; O2SAT 96–100; BMI 25.0
[2020-09-14 06:51] LABS: Anion Gap 11 (12-20); Blood Urea Nitrogen 31 mg/dL (9-16); Calcium 8.7 mg/dL (8.4-10.2); Carbon Dioxide 29 mmol/L (22-29); Chloride 103 mmol/L (96-108); Creatinine Clr Calc Pharmacy 30.9; Estimated Glomerular Filt Rate 35; Glucose Random 95 mg/dL (60-115); Potassium 4.4 mmol/l (3.3-5.1); Sodium 139 mmol/L (135-145)
--- NOTE | 2020-09-14 07:26 | PC.NURSE ---
0320; p: bp elevated 172/87, hr 71 i: Dr. Toribio made aware e: no new orders at this time
[2020-09-14] MEDS: hydrALAZINE HCl 25 MG TABLET PO ×3 (08:27→21:20)
[2020-09-14] MEDS: amLODIPine Besylate 5 MG TABLET PO (08:27)
[2020-09-14] MEDS: 0.9 % Sodium Chloride Flush 3 ML SYRINGE IVFLUSH ×3 (08:27→23:40)
--- NOTE | 2020-09-14 08:52 | PM.UROCN ---
History of Present Illness Consult details Consult date: 09/14/20 Narrative: This is a very pleasant 75-year-old gentleman with past medical history significant for remote renal stones as well as history of right hip placement Admitted to hospital for evaluation with question of cerebral disease. On evaluation found to have obstructing right kidney stone on CT. Elevated creatinine. Creatinine is normalizing with hydration. He required intervention for stones number of years ago. Says that it has been sore for a few days on the right side. We discussed the imaging findings recommendation for intervention with ureteroscopy, retrograde, laser and stent This is the procedure that he had had previously He would like to proceed Review of Systems Constitutional: Constitutional: Denies headache(s) and Denies weakness Eyes: Eyes: Denies loss of vision ENT: Reports Normal hearing present, Denies dizziness and Denies headache(s) Musculoskeletal: Musculoskeletal: Denies numbness and Denies tingling Neurologic: Reports system reviewed and no additional complaints, except as documented, Reports Normal hearing present, Denies Abnormal speech present, Denies dizziness, Denies headache(s), Denies loss of vision, Denies numbness, Denies tingling and Denies weakness [facility] Past Medical History Medical History Hip replacement planned Renal colic Social History Social History Household Members: None Housing: Other Housing Other:: [facility] Do you presently have visiting nurse or other home services: No Smoking Status: Former smoker Tobacco Type: Cigarette Smoked in Last 30 Days: No Use of substances other than those prescribed or required for medical reasons: No Currently Displaying Signs/Symptoms of Drug Intoxication Withdrawal: No Have you been hit, kicked, punched, or otherwise hurt by someone within the past year? If so, by whom?: No Do you feel safe in your current relationship?: No Is there a partner from a previous relationship who is making you feel unsafe now?: No Are you made to feel afraid or neglected: No Advance Directives: No Advance Directives Information Provided: Yes Do you have thoughts of harming others: None Do you have a plan to hurt others: No Plan Recently lost weight without trying: No service: No Current occupational status: retired Meds Allergies Allergy/AdvReac Type Severity Reaction Status Date / Time No Known Allergies Allergy Mild NO Verified 09/12/20 14:53 Home Medications Medication Instructions Recorded Confirmed Type fluorometholone 1 drp OPHTHALMIC (EYE) BID PRN 09/12/20 09/12/20 History Physical Exam Vital Signs: Vital Signs: Last Vital Signs Temp 97.6 F 09/14/20 07:13 Pulse 74 09/14/20 08:27 Resp 18 09/14/20 07:13 BP 138/71 09/14/20 08:27 Pulse Ox 96 09/14/20 07:13 Body Mass Index 25.0 Neuro: Cranial nerves: Yes Normal hearing present Speech: No Abnormal speech present Results Labs Result diagrams: 09/12/20 15:25 09/14/20 05:35 Labs: Abnormal lab results 09/14/20 Range/Units 05:35 Anion Gap 11 L (12-20) BUN 31 H (9-16) mg/dL Creatinine 1.87 H (0.5-1.4) mg/dL BMP 09/14/20 05:35 Sodium 139 Potassium 4.4 Chloride 103 Carbon Dioxide 29 BUN 31 H Creatinine 1.87 H Calcium 8.7 Urine 09/13/20 Range/Units 10:56 Urine Color YELLOW Urine Appearance CLEAR Urine pH 6.0 (5.0-8.0) Ur Specific [place] 1.020 (1.005-1.025) Urine Protein NEG (NEG-TRACE) MG/DL Urine Glucose (UA) NEG (NEG) MG/DL All other labs normal. Multiple bilateral renal calculi are present the largest on the right is a 6 mm right mid-upper renal calculus. Largest on the left measures 4 mm. There is moderate right hydroureteronephrosis with the dilated right proximal ureter followed to a 6 mm transaxial by 7 mm craniocaudal right proximal ureteral calculus. Assessment and Plan (1) Nephrolithiasis: Status: Acute (2) Hydroureteronephrosis: Status: Acute Ureteroscopy We discussed the nature of the decision and reasonable alternatives for performing the above surgery. Interventions include chemical dissolution, ESWL, ureteroscopy with laser lithotripsy and stent placement, PCNL. Options such as medical therapy were discussed. The relative uncertainties and benefits related to each alternate procedure were adequately discussed. General surgical risks including, but not limited to, pain, bleeding, infection, myocardial infarction, pulmonary embolus, deep vein thrombosis and cerebrovascular accident which may result in further hospitalization were discussed. Full disclosure of the procedure as well as all major risks, benefits and complications were discussed including but not limited to damage to the urethra, bladder and kidney infection, damage to the ureter, stent migration or malposition, scarring to the renal pelvis, remnant stone fragments, subsequent stone passage with need for secondary procedures. The overall secondary procedure rate is approximately 10-15%. The success rate of the procedure was discussed. Success of the procedure in the short-term does not necessarily guarantee that long-term success will be maintained. Suitable follow up will need to be maintained. The patient showed understanding of discussion and wishes to proceed with - cystoscopy, retrograde, ureteroscopy, possible lithotripsy/stone basketing and stent on the right side
--- NOTE | 2020-09-14 12:21 | MHC.CM.PN ---
The goal for dc is for Patient to return home. BP is apparently elevated today and MD was made aware. CM will continue to follow for dc planning and to monitor for the need to adjust the dc plan.
--- NOTE | 2020-09-14 13:18 | PM.PNNEP ---
Subjective Subjective Date of Service: 09/14/20 Interval history: seen and examined patient offers no acute complaints Physical Exam Vital Signs: Vital Signs: Last Vital Signs Temp 96.9 F 09/14/20 11:07 Pulse 77 09/14/20 11:07 Resp 20 09/14/20 11:07 BP 138/74 09/14/20 11:07 Pulse Ox 98 09/14/20 11:07 Body Mass Index 25.0 Const: General: no acute distress Neck: Neck: Yes supple Resp: Auscultation: clear to auscultation bilaterally Cardio: Heart sounds: S1 normal heart sound present and S2 normal heart sound present GI: Palpation (GI): Soft to palpation and nontender Extrem: General: Yes no pedal edema Assessment & Plan Assessment and plan (1) IAN (acute kidney injury): Status: Acute (2) Hydronephrosis: Status: Acute Assessment and Plan: kidney function unchanged CT scan of the abdomen confirmed obstruction due to nephrolithiasis IAN multifactorial: -NSAID nephrotoxicity -obstructive uropathy kidney US had showed right moderate hydronephrosis unknown baseline serum creatinine REC ureteral stent per urology follow kidney function and electrolytes Time Spent With Patient Time: Total time spent is greater than 50% in coordination of care (as documented) at patient's floor/unit and/or counseling patient:
--- NOTE | 2020-09-14 14:11 | FL_ITS ---
EXAMINATION: XR FLUOROSCOPY WITH IMAGES CLINICAL INFORMATION: Obstructing right ureteral calculus. COMPARISON: CT abdomen and pelvis noncontrast 09/13/2020 TECHNIQUE: Fluoroscopy performed by Dr. Pascual Gregory. Fluoroscopy time: 1.13 minutes Total Dose: 19.32 mGy Images: 4 FINDINGS: There is guidewire in the right ureter and upper pole collecting system. There is mild right hydronephrosis. Final images show right ureteral stent in position. FL/FL guidance in OR IMPRESSION: Fluoroscopy for urologic procedures.
--- NOTE | 2020-09-14 14:48 | HO.ANESPROP2 ---
[facility]LY [facility] Past Medical History Medical History Hip replacement planned Renal colic Social History Social History Household Members: None Housing: Other Housing Other:: [facility] Do you presently have visiting nurse or other home services: No Smoking Status: Former smoker Tobacco Type: Cigarette Smoked in Last 30 Days: No Use of substances other than those prescribed or required for medical reasons: No Currently Displaying Signs/Symptoms of Drug Intoxication Withdrawal: No Have you been hit, kicked, punched, or otherwise hurt by someone within the past year? If so, by whom?: No Do you feel safe in your current relationship?: No Is there a partner from a previous relationship who is making you feel unsafe now?: No Are you made to feel afraid or neglected: No Advance Directives: No Advance Directives Information Provided: Yes Do you have thoughts of harming others: None Do you have a plan to hurt others: No Plan Recently lost weight without trying: No service: No Current occupational status: retired [employer] Allergies Allergy/AdvReac Type Severity Reaction Status Date / Time No Known Allergies Allergy Mild NO Verified 09/12/20 14:53 Home Medications Medication Instructions Recorded Confirmed Type fluorometholone 1 drp OPHTHALMIC (EYE) BID PRN 09/12/20 09/12/20 History Exam Exam Date and Time: September 14, 2020 1448 Height,Weight and Vital Signs: Height 5 ft 7 in Weight 72.575 kg Last Vital Signs Temp 96.9 F 09/14/20 11:07 Pulse 77 09/14/20 11:07 Resp 20 09/14/20 11:07 BP 138/74 09/14/20 11:07 Pulse Ox 98 09/14/20 11:07 Pertinent Lab Results Pertinent Lab Results: Laboratory Tests 09/12/20 09/12/20 09/12/20 15:25 15:25 15:25 WBC 10.2 RBC 4.27 L Hgb 14.5 Hct 41.9 L MCV 98.1 H MCH 34.0 H MCHC 34.6 RDW 11.5 Plt Count 219 MPV 9.7 Immature Gran % (Auto) 0.4 Neut % (Auto) 75.6 H Lymph % (Auto) 13.4 L [place] % (Auto) 9.1 Eos % (Auto) 1.1 Baso % (Auto) 0.4 Lymph # (Auto) 1.4 [place] # (Auto) 0.9 Eos # (Auto) 0.1 Baso # (Auto) 0.0 Abs Immat Gran (auto) 0.04 H Absolute Neuts (auto) 7.8 Absolute Nucleated RBC 0.000 Nucleated RBC % (auto) 0.0 PT INR Sodium 137 Potassium 4.5 Chloride 100 Carbon Dioxide 28 Anion Gap 14 BUN 31 H Creatinine 1.85 H Estim Creat Clear Calc 31.2 Estimated GFR 36 Random Glucose 88 Calcium 8.9 Urine Color Urine Appearance Urine pH Ur Specific [place] Urine Protein Urine Glucose (UA) Urine Ketones Urine Blood Urine Nitrite Ur Leukocyte Esterase COVID-19 (DAVID) Negative COVID-19 Clin Com See Note 09/13/20 09/13/20 09/13/20 05:39 05:39 10:56 WBC RBC Hgb Hct MCV MCH MCHC RDW Plt Count MPV Immature Gran % (Auto) Neut % (Auto) Lymph % (Auto) [place] % (Auto) Eos % (Auto) Baso % (Auto) Lymph # (Auto) [place] # (Auto) Eos # (Auto) Baso # (Auto) Abs Immat Gran (auto) Absolute Neuts (auto) Absolute Nucleated RBC Nucleated RBC % (auto) PT 11.4 INR 1.0 Sodium 140 Potassium 4.7 Chloride 104 Carbon Dioxide 29 Anion Gap 12 BUN 27 H Creatinine 1.83 H Estim Creat Clear Calc 31.6 Estimated GFR 36 Random Glucose 80 Calcium 8.9 Urine Color YELLOW Urine Appearance CLEAR Urine pH 6.0 Ur Specific [place] 1.020 Urine Protein NEG Urine Glucose (UA) NEG Urine Ketones NEG Urine Blood NEG Urine Nitrite NEG Ur Leukocyte Esterase NEG COVID-19 (DAVID) COVID-19 Clin Com 09/14/20 05:35 WBC RBC Hgb Hct MCV MCH MCHC RDW Plt Count MPV Immature Gran % (Auto) Neut % (Auto) Lymph % (Auto) [place] % (Auto) Eos % (Auto) Baso % (Auto) Lymph # (Auto) [place] # (Auto) Eos # (Auto) Baso # (Auto) Abs Immat Gran (auto) Absolute Neuts (auto) Absolute Nucleated RBC Nucleated RBC % (auto) PT INR Sodium 139 Potassium 4.4 Chloride 103 Carbon Dioxide 29 Anion Gap 11 L BUN 31 H Creatinine 1.87 H Estim Creat Clear Calc 30.9 Estimated GFR 35 Random Glucose 95 Calcium 8.7 Urine Color Urine Appearance Urine pH Ur Specific [place] Urine Protein Urine Glucose (UA) Urine Ketones Urine Blood Urine Nitrite Ur Leukocyte Esterase COVID-19 (DAVID) COVID-19 Clin Com Airway TM Dist: >3cm Neck ROM: Full Denture: Upper Loose/Missing/Broken Teeth: No Assessment and Plan Assessment Anesthesia Assessment: Anesthesia Plan Discussed, PAT Visit and Chart Reviewed Final Anesthetic Review NPO: Yes ASA Class: II Final Preanesthetic Review: No Changes in Pt Med Stat, Meds/Allgs Chart Reviewed, Consent Obtained/Reviewed and Anes Risks/Benef Reviewed Patient Risk: Low Procedure Risk: Low Anesthetic Plan Anesthetic Plan: GA Disposition: Standard PACU
[2020-09-14] MEDS: levoFLOXacin 500 MG TABLET PO (15:10)
--- NOTE | 2020-09-14 15:10 | MHC.SHP ---
Pre-Procedural Eval Section A The patient is an INPATIENT: Yes Changes since office visit: No Cold of Flu in the past 2 weeks, No New Medical Problems, No Changes in Medication and No Patient answered all questions The History & Physical has been completed within 30 days and I have reviewed it.: Yes Section B Chief Complaint: IAN/RIGHT OCCIPITAL LESION Allergies: Allergies Allergy/AdvReac Type Severity Reaction Status Date / Time No Known Allergies Allergy Mild NO Verified 09/12/20 14:53 Plan Patient has been examined and remains a candidate for the planned procedure
--- NOTE | 2020-09-14 15:30 | P.PNIM_ITS ---
Subjective Subjective Date of Service: 09/14/20 Interval History: patient denies lower back pain is still having difficulty with reading although managed to read for 30 minutes, wants to know where he has blockage in the kidneys and has several questions in regard to his occipital lesion. Review of Systems General no headache, no dizziness, no fever chills. CVS no chest pain, no palpitation. Respiratory no cough ,no shortness of breath Gastrointestinal no nausea, no vomiting, no abdominal pain Physical Exam Vital Signs: Vital Signs: Last Vital Signs Temp 98.1 F 09/14/20 14:53 Pulse 87 09/14/20 14:53 Resp 18 09/14/20 14:53 BP 156/86 H 09/14/20 14:53 Pulse Ox 98 09/14/20 14:53 Body Mass Index 25.0 General patient resting comfortably , no acute distress. Neck is supple . CVS regular rate rhythm, Respiratory lungs clear to auscultation, no respiratory distress, no wheeze, no rhonchi. Gastrointestinal abdomen soft, nontender, bowel sounds audible. Extremities no clubbing cyanosis or edema. Neuro nonfocal, patient moving all 4 extremity speech clear. Skin no rash Psych normal affect Objective Data Current Medications Generic Name Dose Route Start Last Admin Trade Name Freq PRN Reason Stop Dose Admin Acetaminophen 650 mg 09/12/20 17:45 09/13/20 20:46 Acetaminophen 325 Mg Tablet PO 650 mg Q6H PRN Administration Pain, Mild (Pain Scale 1-3) Amlodipine Besylate 5 mg 09/13/20 09:00 09/14/20 08:27 Amlodipine Besylate 5 Mg Tablet PO 5 mg DAILY [facility] Administration Protocol Hydralazine HCl 25 mg 09/12/20 21:00 09/14/20 08:27 Hydralazine Hcl 25 Mg Tablet PO 25 mg TID [facility] Administration Protocol Non-Formulary Medication 1 drop 09/12/20 21:00 09/13/20 19:14 Fluorometholone EYE-BOTH 1 drop BID PRN Administration BLURRY VISION Ondansetron HCl 4 mg 09/12/20 17:45 Ondansetron Hcl 4 Mg/2 Ml Vial IVPUSH Q8H PRN Nausea and Vomiting Oxycodone HCl 5 mg 09/12/20 17:45 Oxycodone Hcl Immed Release 5 Mg Tablet PO Q6H PRN Pain, Severe (Pain Scale 7-10) Pharmacy Consult 1 each 09/12/20 15:13 Consult Rx Perform Med Rec MISCELLANE ONCE PRN Consult order Sodium Chloride 3 ml 09/13/20 00:00 09/14/20 08:27 0.9 % Sodium Chloride Flush 3 Ml Syringe IVFLUSH 3 ml QSHIFT ZION Administration Labs CBC & Chem 7: 09/12/20 15:25 09/14/20 05:35 Assessment and Plan (1) Hydroureteronephrosis: Status: Acute (2) Nephrolithiasis: Status: Acute (3) Cerebral hemorrhage: Problem details: Probable occipital lobe hemorrhage 10 which is more recent than 1 chronic suggesting Cerebral amyloid Angiopathy. Other lesion such as a cyst, metastatic or infectious etiology needs to be ruled out although appear less likely Status: Acute (4) Hypertension: Problem details: Control Status: Acute (5) IAN (acute kidney injury): Status: Acute (6) Abnormal MRI of head: Status: Acute Assessment and Plan: 1. Acute kidney injury. creatinine unchanged, likely due to use of NSAIDs and related to obstructive uropathy, patient being followed closely by Nephrology, patient undergoing cystoscopy by Urology this afternoon, will follow renal function at a.m., hold IV fluid, avoid nephrotoxins and NSAIDs 2. Uncontrolled Hypertension. patient has no diagnosis of hypertension, noted t o have significantly elevated blood pressure on arrival therefore patient placed on Norvasc and hydralazine current blood pressure is stable, will discuss blood pressure management with Nephrology upon discharge. 3. Right occipital lobe lesion with difficulty focusing. patient seen by Dr. Louise right occipital lesion we probably is related to hospital lobe hemorrhage rate likely related to cerebral amyloid angiopathy, he recommend follow-up MRI of the brain in 1 month including MRI brain with gadolinium if kidney function normalizes to rule out other possibilities of cyst metastatic or infectious etiology although that seems to be less likely. 4. Right hydronephrosis with intermittent Right-sided lower back pain. CT abdomen and pelvis showed a right proximal ureter stone causing hydronephrosis, consulted urology Dr. Gregory will proceed with cystoscopy this afternoon patient has been kept NPO and informed about the procedure UA revealed no RBC, 5. DVT prophylaxis with compression boots
--- NOTE | 2020-09-14 16:13 | P.BOP_ITS ---
Brief Operative Note Date of Service: 09/14/20 Pre-op diagnosis: 1. right ureteric stone with hydronephrosis 2. multiple right renal stones Post-op diagnosis: same Procedure: 1. cystoscopy with right retrograde 2. dilatation right ureteric orifice under fluoroscopy 3. right ureteroscopy laser lithotripsy of right ureteric stone 4. ureteroscopy and laser lithotripsy of right renal stones with stone basketing 5. right stent placement Implants: right ureteric stent 6 [place] by 24 cm Surgeon: Pascual Gregory MD Anesthesia: GLMA Estimated blood loss (mL): 0 Pathology: other ( stones) Condition: stable Disposition: same day
--- NOTE | 2020-09-14 16:15 | P.OP_ITS ---
Operative Note Operative Note Date of Service: 09/14/20 Narrative: PreOperative Diagnosis: 1. right ureteric stone with hydronephrosis 2. right renal stones Post Operative Diagnosis: same Procedure: - cystoscopy, retrograde - dilatation of ureteric orifice under fluoroscopy - ureteroscopy, laser lithotripsy, stone basketing - laser of right ureteric stone, laser of 3 separate right renal stones in 3 locations - stent placement Surgeon: Dr Pascual Gregory Anesthesia: General Indications for procedure: this is a 75-year-old male. Admitted through the emergency room with a question of a neurologic issue. CT scan had revealed right stones multiple with hydronephrosis of the right proximal ureteric stone. He had had stones previously. Has had previous ureteroscopy. This was explained as required as his creatinine was 1.8. He understands risks and benefits and consents to the procedure. Procedure: After informed consent was verified patient was brought to the operating placed in supine position. Anesthesia was administered per protocol. Patient was placed in modified dorsal lithotomy position and prepped and draped in a sterile fashion. Safety pause time-out and side of surgery confirmed. Antibiotics confirmed. A 21 [place] cystoscope was inserted per urethra. The bladder was normal. Ureteric orifices normal position. the right ureteric orifice was cannulated. A wire placed. Open-ended placed. Retrograde examination performed showing filling defect in the proximal portion of the right proximal ureter. A sensor guidewire was placed to the level of the kidney. The internal cannula from the ureteric access sheath was used to dilate the right ureteric orifice under fluoroscopy. A flexible ureteroscope was placed alongside the wire and the stone was encountered in the upper portion of the ureter. It was imbedded. Using a 250 micron holmium laser fiber the stone was broken into small pieces. Attempt was made to basket except a group of stones came down and they were retrieved after stretching the basket. A flexible ureteroscopy was then placed up to level of the renal pelvis. The renal pelvis examined. Two stones were found in the upper pole. These were broken up each was approximately 6 mm. One stone was son in the mid calyx this was broken up as well approximately 6 mm. Another stone was found in the lower calyx and was broken up is approximately 6 mm. Once the stones being broken into many small pieces a decision was made not to basket as there was concern regarding the diameter of the ureter. A sensor guidewire was placed up to the renal pelvis through the flexible ureteral scope. The access sheath was removed. The wire was backloaded through a regular cystoscope. The regular cystoscope was placed into the bladder. A 6 [place] by 24 cm stent was placed under combination of fluoroscopic and direct visualization. He tolerated the procedure well was extubated in operating room and transferred in stable condition to the recovery area. Pathology: Stones Drains: 6 [place] by 24 cm
[2020-09-14] MEDS: Acetaminophen 325 MG TABLET 650 MG PO ×2 (18:10→23:38)
[2020-09-14] MEDS: Phenazopyridine HCL 100 MG TABLET PO (18:10)
[2020-09-14] MEDS: oxyCODONE HCl Immed Release 5 MG TABLET PO (21:18)
[2020-09-15] VITALS (7 sets, daily range): BP systolic 133–159; BP diastolic 70–82; PULSE 88–93; RESP 15–18; TEMP 36.2–36.7; O2SAT 98–100
[2020-09-15] MEDS: Morphine Sulfate 4 MG/ML CARTRIDGE IVPUSH (01:51)
--- NOTE | 2020-09-15 02:30 | PC.NURSE ---
0045; Patient c/o increasing pain in the groin. Patient reporting he has been voiding a little at a time with hematuria. Encouraged patient to ambulate to the bathroom and attempt to void. Patient attempted and was unsuccessful, reported having the urge but unable to void. Bladder scanned patient for 303 mls, patient attempted to void again, only able to dribble. Hospitalist notified and placed orders for araujo catheter and morphine for pain. Medicated patient for pain, araujo catheter inserted with 300 mls drained right away, hematuria. 0140; Patient resting comfortably, pain significantly improved.
[2020-09-15] MEDS: oxyCODONE HCl Immed Release 5 MG TABLET PO (06:09)
[2020-09-15 07:55] LABS: Blood Urea Nitrogen 31 mg/dL (9-16); Calcium 8.7 mg/dL (8.4-10.2); Creatinine Clr Calc Pharmacy 35.4; Estimated Glomerular Filt Rate 41; Glucose Random 112 mg/dL (60-115)
[2020-09-15] MEDS: hydrALAZINE HCl 25 MG TABLET PO ×2 (08:07→15:13)
[2020-09-15] MEDS: amLODIPine Besylate 5 MG TABLET PO (08:07)
[2020-09-15] MEDS: 0.9 % Sodium Chloride Flush 3 ML SYRINGE IVFLUSH ×2 (08:12→16:07)
[2020-09-15 08:55] LABS: Anion Gap 19 (12-20); Carbon Dioxide 19 mmol/L (22-29); Chloride 105 mmol/L (96-108); Potassium 5.3 mmol/l (3.3-5.1); Sodium 138 mmol/L (135-145)
--- NOTE | 2020-09-15 09:45 | PM.PNNEP ---
Subjective Subjective Date of Service: 09/15/20 Interval history: seen and examined events noted feels better no complaints Physical Exam Vital Signs: Vital Signs: Last Vital Signs Temp 97.9 F 09/15/20 07:27 Pulse 93 09/15/20 07:27 Resp 18 09/15/20 07:27 BP 133/71 09/15/20 07:27 Pulse Ox 100 09/15/20 07:27 Body Mass Index 25.0 Const: General: comfortable Neck: Neck: Yes supple Resp: Auscultation: clear to auscultation bilaterally Cardio: Heart sounds: S1 normal heart sound present and S2 normal heart sound present GI: Palpation (GI): Soft to palpation and nontender Extrem: General: Yes no pedal edema Assessment & Plan Assessment and plan (1) IAN (acute kidney injury): Status: Acute (2) Hydronephrosis: Status: Acute (3) Hyperkalemia: Status: Acute (4) Metabolic acidosis: Status: Acute Assessment and Plan: kidney function better s/p stent placement CT scan of the abdomen confirmed obstruction due to nephrolithiasis IAN multifactorial: -NSAID nephrotoxicity -obstructive uropathy kidney US had showed right moderate hydronephrosis unknown baseline serum creatinine REC sodium polystyrene 15 gram x 1 (ordered) follow kidney function and electrolytes will arrange for outpatient renal follow up if discharged later today Time Spent With Patient Time: Total time spent is greater than 50% in coordination of care (as documented) at patient's floor/unit and/or counseling patient:
[2020-09-15] MEDS: Sodium Polystyrene Sulfon/Sorb 15 GM/60 ML ORAL.SUSP PO (10:43)
--- NOTE | 2020-09-15 12:38 | PC.NURSE ---
araujo was clamped, unclamped araujo to check urine for clots. No clots present, urine is ashley colored. Removed arajuo, pt in bathroom attempting to void.
--- NOTE | 2020-09-15 13:51 | PC.NURSE ---
pt states he has ambulated to bathroom and voided small amount of urine. Bladder was drained prior to catheter removal, pt states he is drinking PO fluid to refill and attempt to void again. HE denies pain with voiding.
--- NOTE | 2020-09-15 15:20 | P.DS_ITS ---
DS: Providers Provider Date of admission: 09/12/20 16:32 Primary care physician: Erika Mclain MD Consults: 09/12/20 17:45 Consult to Neurology Routine Consulting Provider: [facility] Reason for consultation: rt occipital lesion Has provider been notified: Yes 09/13/20 08:43 Consult to Nephrology Routine Consulting Provider: Julien Tse Reason for consultation: ian 09/13/20 15:57 Consult to Urology Routine Consulting Provider: Pascual Gregory Reason for consultation: rt hydronephrosis Has provider been notified: No DS: Diagnosis Discharge Diagnosis (1) IAN (acute kidney injury): Status: Acute (2) Hydronephrosis: Status: Acute (3) Hyperkalemia: Status: Acute (4) Metabolic acidosis: Status: Acute DS: Medications Discharge Medications Home Medications: Home Medications Medication Instructions Recorded Confirmed fluorometholone 1 drp OPHTHALMIC (EYE) BID PRN 09/12/20 09/12/20 DS: Summary Hospital Course Hospital Course: History of presenting illness 75-year-old gentleman with past medical history significant for remote renal stones as well as history of right hip placement. He has been complaining of 3 weeks of difficulty on focusing while reading where he noticed that the words were moving. Therefore, he was seen by Maintenance Coordinator. He gave him some eyedrops. His symptoms seems to improve a little bit, but since he also developed right-sided lower back pain, he was seen by his primary care physician and he complained to them about the visual symptoms as well as back pain. Therefore, an MRI brain without contrast was obtained. The MRI showed that the patient has 1.4 cm right occipital lobe lesion with a wide differential diagnosis including hemorrhagic metastasis, abscess, further evaluation is recommended with an MRI brain with IV contrast. There are also punctate scattered foci of susceptibility throughout the brain parenchyma. 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 The patient's laboratory data also showed that he had an elevated creatinine of 1.85 with no recent creatinine available. The patient admitted that he has been using Advil twice daily for his lower back pain with good relief in symptoms and sometimes he takes Tylenol and a strong pain medication that he cannot recall the name. Other than that, the patient denies any symptoms of headache, dizziness, no fever, chills. He denies any weight loss. Denies any loss of appetite. He has no other neurological deficits. hospital course 1. Acute kidney injury. 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 2. Uncontrolled Hypertension. patient has no diagnosis of hypertension, noted to have significantly elevated blood pressure on arrival therefore patient placed on Norvasc and hydralazine current blood pressure is stable, will discharge patient home on Norvasc 5 mg daily. 3. Right occipital lobe lesion with difficulty focusing. patient seen by Dr. 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 4. Right hydronephrosis with intermittent Right renal colic. CT abdomen and pelvis showed a right proximal ureter stone causing hydronephrosis, renal stone, patient seen by Dr. Gregory and underwent cystoscopy and underwent laser stone removal, stent placement and renal stones were broken down, postprocedure patient developed abdominal pain and had difficulty voiding of Marley catheter was placed patient was treated with pain medication, subsequently Marley catheter removed patient is voiding with no difficulty. Time Spent with Patient Time attestation: Total time spent providing and/or coordinating discharge services: Physical Exam Vital Signs: Vital Signs: Last Vital Signs Temp 97.1 F 09/15/20 15:09 Pulse 88 09/15/20 15:13 Resp 15 09/15/20 15:09 BP 146/81 H 09/15/20 15:13 Pulse Ox 98 09/15/20 15:09 Body Mass Index 25.0 General patient resting comfortably in no acute distress. Neck is supple no JVD. CVS regular rate rhythm, Respiratory lungs clear to auscultation, no respiratory distress, no wheeze, no rhonchi. Gastrointestinal abdomen soft, nontender, bowel sounds audible, no guarding , no rigidity. Extremities no clubbing cyanosis or edema. back no CVA tenderness Neuro nonfocal patient moving all 4 extremity speech clear. Skin no rash DS: Data Data Completed and Pending Pending studies at discharge: Pending at discharge 09/14/20 16:27 Surgical [PTH] Routine Labs on day of discharge: 09/12/20 15:25 Basic Metabolic Panel Stat COVID-19 ID NOW ([place]) Stat Complete Blood Count Auto Diff Stat 09/12/20 16:01 0.9 % Sodium Chloride [Ns] 1,000 ml IV 999 mls/hr 09/12/20 16:27 Transfer Order Routine 09/12/20 16:43 amLODIPine Besylate [Norvasc] 5 mg PO ONCE ONE 09/12/20 17:45 0.9 % Sodium Chloride [Ns] 1,000 ml IVCONT 100 mls/hr 09/12/20 Dinner Regular Diet 09/12/20 20:00 Flu Vacc [id number](6mos up)/PF [Fluarix Quad [id number]] 0.5 ml IM .ONCE ONE 09/13/20 CT abdomen pelvis wo con Routine US renal BI Routine 09/13/20 05:39 Basic Metabolic Panel DAILY@0600 Prothrombin Time INR DAILY@0600 09/13/20 10:56 UA CC w/rflx Micro + Cult Urgent 09/14/20 05:35 Basic Metabolic Panel Routine 09/14/20 14:11 FL guidance in OR Routine 09/14/20 14:15 iohexoL 300 MG/ML [Omnipaque 300 MG/ML] 50 ml IV .STK-MED ONE 09/14/20 14:53 levoFLOXacin [Levaquin] 500 mg PO ONCE ONE 09/14/20 15:09 levoFLOXacin [Levaquin] 500 mg .ROUTE .STK-MED ONE Transfer Order Routine 09/14/20 16:19 Acetaminophen [Tylenol] 650 mg PO ONCE ONE Phenazopyridine HCL [Pyridium] 100 mg PO ONCE ONE 09/14/20 16:27 Transfer Order Routine 09/15/20 01:28 Morphine Sulfate 4 mg IVPUSH ONCE ONE 09/15/20 06:16 Basic Metabolic Panel Routine 09/15/20 09:48 Sodium Polystyrene Sulfon/Sorb [Kayexalate] 15 gm PO ONCE ONE Laboratory Last Values WBC 10.2 X10*3/uL (4.8-10.8) 09/12/20 15:25 RBC 4.27 X10*6/uL (4.60-5.80) L 09/12/20 15:25 Hgb 14.5 g/dl (14.0-18.0) 09/12/20 15:25 Hct 41.9 % (42-52) L 09/12/20 15:25 MCV 98.1 fL (80-98) H 09/12/20 15:25 MCH 34.0 pg (27.0-33.0) H 09/12/20 15:25 MCHC 34.6 g/dl (31.0-36.0) 09/12/20 15:25 RDW 11.5 % (11.0-16.0) 09/12/20 15:25 Plt Count 219 X10*3/uL (160-400) 09/12/20 15:25 MPV 9.7 fL (9.4-12.4) 09/12/20 15:25 Immature Gran % (Auto) 0.4 % (0.0-0.4) 09/12/20 15: Neut % (Auto) 75.6 % (45-73) H 09/12/20 15:25 Lymph % (Auto) 13.4 % (20-40) L 09/12/20 15:25 [place] % (Auto) 9.1 % (2-11) 09/12/20 15:25 Eos % (Auto) 1.1 % (0-4) 09/12/20 15:25 Baso % (Auto) 0.4 % (0-2) 09/12/20 15:25 Lymph # (Auto) 1.4 X10*3/uL (1.2-4.9) 09/12/20 15:25 [place] # (Auto) 0.9 X10*3/uL (0.1-1.2) 09/12/20 15:25 Eos # (Auto) 0.1 X10*3/uL (0.0-0.4) 09/12/20 15:25 Baso # (Auto) 0.0 X10*3/uL (0.0-0.2) 09/12/20 15:25 Abs Immat Gran (auto) 0.04 X10*3/uL (0.00-0.03) H 09/12/20 15:25 Absolute Neuts (auto) 7.8 X10*3/uL (2.0-8.3) 09/12/20 15:25 Absolute Nucleated RBC 0.000 X10*3/uL (0.0-0.012) 09/12/20 15:25 Nucleated RBC % (auto) 0.0 /100WBC (0.0-0.2) 09/12/20 15:25 PT 11.4 SEC (10.8-13.0) 09/13/20 05:39 INR 1.0 (0.9-1.1) 09/13/20 05:39 Sodium 138 mmol/L (135-145) 09/15/20 06:16 Potassium 5.3 mmol/l (3.3-5.1) H D 09/15/20 06:16 Chloride 105 mmol/L (96-108) 09/15/20 06:16 Carbon Dioxide 19 mmol/L (22-29) L 09/15/20 06:16 Anion Gap 19 (12-20) 09/15/20 06:16 BUN 31 mg/dL (9-16) H 09/15/20 06:16 Creatinine 1.63 mg/dL (0.5-1.4) H 09/15/20 06:16 Estim Creat Clear Calc 35.4 09/15/20 06:16 Estimated GFR 41 09/15/20 06:16 Random Glucose 112 mg/dL (60-115) 09/15/20 06:16 Calcium 8.7 mg/dL (8.4-10.2) 09/15/20 06:16 Urine Color YELLOW 09/13/20 10:56 Urine Appearance CLEAR 09/13/20 10:56 Urine pH 6.0 (5.0-8.0) 09/13/20 10:56 Ur Specific [place] 1.020 (1.005-1.025) 09/13/20 10:56 Urine Protein NEG MG/DL (NEG-TRACE) 09/13/20 10:56 Urine Glucose (UA) NEG MG/DL (NEG) 09/13/20 10:56 Urine Ketones NEG MG/DL (NEG) 09/13/20 10:56 Urine Blood NEG (NEG) 09/13/20 10:56 Urine Nitrite NEG (NEG) 09/13/20 10:56 Ur Leukocyte Esterase NEG (NEG) 09/13/20 10:56 COVID-19 (DAVID) Negative (Negative) 09/12/20 15:25 COVID-19 Clin Com See Note 09/12/20 15:25 Discharge Plan Discharge Patient Disposition: Home, Self-Care Referrals: Erika Mclain MD [Primary Care Provider] - Discharge Medications: New amlodipine 5 mg Tablet 5 mg PO DAILY Qty: 30 RF: 0 Continued fluorometholone 0.1 % drops,suspension 1 drp ophthalmic (eye) BID PRN (Reason: BLURRY VISION) RF: 0 Discharge Orders: Discharge Order (Routine); Ordered 09/15/20 Ordered By: Jessica Chatman Diet: low fat, low cholesterol Activity on Discharge: As tolerated Other Ambulatory Orders: Basic Metabolic Panel (Routine) Timeframe: 20200919 Facility: [facility] - Location: Laboratory Ordered By: Jessica Chatman Visit Report Forms: Patient Portal Discharge page Care Plan Goals: close outpatient follow-up with Dr. Louise from Neurology, Dr. Gregory from Urology and Dr. Blaze Ibrahim from Nephrology for continued monitoring of renal insufficiency. Health Concerns: follow-up labs on Saturday, take Norvasc as prescribed, avoid NSAIDs Plan of Treatment: as above.
--- NOTE | 2020-09-15 15:35 | MHC.CM.PN ---
Patient has been medically cleared for dc to home today, no services. Last IMM addressed on 09/13/20.
--- NOTE | 2020-09-15 16:05 | PC.NURSE ---
pt is discharged but awaits daughter picking him up. He states she will be here at 1930. will continue to monitor until pt's ride arrives
--- NOTE | 2020-09-15 18:30 | PC.NURSE ---
pt awake, oriented and has ambulated to bathroom, dressed and is awaiting transport to exit. Pt states understanding of discharge and follow up plan. He states he will follow with urology and neurology as directed.
[2020-09-24 02:33] LABS: Stone Source KIDNEY STONE
== END 2020-09-15 19:18 | disposition home or self-care (01) | DRG 987 ==
LOC: HO.ED 16:16 → HO.IMC 16:57
PROVIDERS: Nurse Practitioner Family; Urology; Admitting Provider Hospitalist; Emergency Provider Emergency Medicine Emergency Medical Services; PCP Internal Medicine; Visit Provider Hospitalist
PROC: 0T768DZ Dilation of Right Ureter with Intraluminal Device, Via Natural or Artificial Opening Endoscopic (ICD-10-PCS; principal; 2020-09-14 14:30)
DX: E85.4 Organ-limited amyloidosis (principal); I61.1 Nontraumatic intracerebral hemorrhage in hemisphere, cortical; N17.9 Acute kidney failure, unspecified; N13.2 Hydronephrosis with renal and ureteral calculous obstruction; I68.0 Cerebral amyloid angiopathy; T39.395A Adverse effect of other nonsteroidal anti-inflammatory drugs [NSAID], initial encounter; Y92.9 Unspecified place or not applicable; Z23 Encounter for immunization; Z20.828 Contact with and (suspected) exposure to other viral communicable diseases; Z87.442 Personal history of urinary calculi; Z79.899 Other long term (current) drug therapy
CPT/HCPCS: 36415; 74176; 76775; 80048; 81003; 82365; 85025; 85610; 87635; 88300; 90686; 99223; 99232; 99285; C1758; C1769; C1894; C2617; J1100; J1885; J2270; J2405; J3010; Q9967

== ENCOUNTER 2020-09-19 13:15 | Outpatient (REF) | payer MEDICARE, SELFPAY ==
[2020-09-19 15:07] LABS: Anion Gap 12 (12-20); Blood Urea Nitrogen 26 mg/dL (9-16); Calcium 8.8 mg/dL (8.4-10.2); Carbon Dioxide 30 mmol/L (22-29); Chloride 104 mmol/L (96-108); Estimated Glomerular Filt Rate > 60; Glucose Random 84 mg/dL (60-115); Potassium 4.2 mmol/l (3.3-5.1); Sodium 142 mmol/L (135-145)
== END 2020-09-19 13:16 | disposition home or self-care (01) ==
LOC: HO.LAB 13:15
PROVIDERS: PCP Internal Medicine; Visit Provider Hospitalist
DX: N17.9 Acute kidney failure, unspecified (principal)
CPT/HCPCS: 80048

== ENCOUNTER → 2020-09-22 08:34 | Outpatient (BNVA) | payer MEDICARE, SELFPAY | PROVIDERS: PCP Internal Medicine; Referring Provider Internal Medicine; Visit Provider Urology | DX: N20.0 Calculus of kidney (principal) | CPT/HCPCS: 52000; 52310; 99212 ==

== ENCOUNTER → 2020-11-01 10:00 | Outpatient (BNVA) | payer MEDICARE, SELFPAY | PROVIDERS: Visit Provider Urology | DX: N20.0 Calculus of kidney (principal) | CPT/HCPCS: Q3014 ==

== ENCOUNTER 2021-05-18 09:38 | Outpatient (REF) | payer MEDICARE, SELFPAY ==
--- NOTE | ~2021-05-18 | US_ITS ---
EXAMINATION: US RETROPERITONEAL LIMITED (RENAL ONLY) CLINICAL INFORMATION: Calculus of kidney. COMPARISON: CT abdomen and pelvis and renal ultrasound 09/13/2020. TECHNIQUE: Real-time imaging of the kidneys. FINDINGS: RIGHT KIDNEY: 9.8 x 5.2 x 4.5 cm (SAG x AP x TRV). No hydronephrosis or caliectasis. There is resolution right hydronephrosis since prior imaging. Renal parenchymal thickness and echogenicity is normal. There are 2 nonobstructing calculi suggested mid pole 0.7 cm and 0.5 cm, respectively. LEFT KIDNEY: 11.0 x 5.7 x 4.8 cm (SAG x AP x TRV). No hydronephrosis or caliectasis. Normal renal parenchymal thickness and echogenicity. There are 2 nonobstructing calculi, upper pole 0.4 cm and interpolar 0.4 cm. US/US renal BI IMPRESSION: 1. Right: No hydronephrosis or caliectasis. 2 nonobstructing calculi, 0.7 cm and 0.5 cm. 2. Left: No hydronephrosis or caliectasis. 2 nonobstructing calculi, each 0.4 cm.
== END 2021-05-18 09:39 | disposition home or self-care (01) ==
LOC: HO.US 09:38
PROVIDERS: Visit Provider Urology
DX: N20.0 Calculus of kidney (principal)
CPT/HCPCS: 76775

== ENCOUNTER 2023-02-15 13:48 | Emergency (ER) | payer MEDICARE, SELFPAY ==
--- NOTE | ~2023-02-15 | CT_ITS ---
CT head/brain wo IV con CLINICAL INFORMATION: Reason for Exam LUE weakness COMPARISON: No prior CT scan available for comparison. TECHNIQUE: Department standard protocol. This CT examination was performed using dose optimization techniques as appropriate, variously including the following: *Automated exposure control *Adjustment of mA and/or kV according to patient size (this includes techniques or standardized protocols for targeted exams where dose is matched to indication/reason for exam; i.e. extremities or head) *Use of iterative reconstruction technique DLP: 676 mGy-cm FINDINGS: CEREBRAL HEMISPHERES: There is hyperdense material in the right parietal lobe 2.9 x 1.8 cm x 3.3 cm consistent with acute intraparenchymal bleed, there is surrounding hypodense area likely mass effect, brain edema. There is no midline shift. Few surrounding subarachnoid bleed in the posterior right parietal lobe. This is most commonly due to hemorrhagic infarct. Cannot rule out underlying pathologic process. SUBDURAL SPACE: No bleed. BASAL GANGLIA AND PINEAL GLAND: Unremarkable VENTRICLES: Ventricles are normal in size. There is no intraventricular bleed. CEREBELLUM AND BRAINSTEM: No space-occupying mass, hemorrhage or acute infarct. CEREBELLOPONTINE ANGLES: No lesion found. ORBITS: No intraorbital mass. VESSELS: Unremarkable SKULL BASE: Unremarkable. INCLUDED SINUSES AT SKULL BASE: Clear SKULL AND SKIN: No fracture or bone lesion found. CT/CT head/brain wo IV con IMPRESSION: Acute intracranial intraparenchymal bleed in the posterior right parietal lobe 2.9 x 1.8 x 3.3 cm, there is surrounding hypodense area likely brain edema, there is mild surrounding mass effect, there is no midline shift. Mild adjacent surrounding petechial subarachnoid bleed posterior right parietal lobe. Intraparenchymal hemorrhage most commonly due to hemorrhagic infarct. Cannot rule out underlying pathologic process. Attention for follow-up imaging recommended. This critical result was discussed with Dr. Coronel by telephone at 02/15/2023 3:36 PM and it was ascertained that the content and urgency of the report was understood at the time of direct communication.
[2023-02-15 14:21] VITALS: BP 207/105; PULSE 82; RESP 17; TEMP 36.6; O2SAT 100; BMI 28.7
--- NOTE | 2023-02-15 14:22 | ED_ITS ---
HPI - Neuro Symptoms/Deficit General Chief Complaint: Neuro Symptoms/Deficit Stated Complaint: L arm numbness Time Seen by Provider: 02/15/23 14:52 Related Data Home Medications Medication Instructions Recorded Confirmed fluorometholone 0.1 % eye 1 drp ophthalmic (eye) BID PRN 09/12/20 09/12/20 drops,suspension BLURRY VISION Previous Rx's Medication Instructions Recorded amlodipine 5 mg tablet 5 mg PO DAILY #30 tabs 09/15/20 tamsulosin 0.4 mg capsule 0.4 mg PO BEDTIME #30 caps 09/22/20 pyridoxine (vitamin B6) 100 mg 100 mg PO DAILY #90 tabs 11/01/20 tablet Allergies Allergy/AdvReac Type Severity Reaction Status Date / Time No Known Allergies Allergy Mild NO Verified 11/01/20 10:01 [facility] Past Medical History Medical History Hip replacement planned Renal colic Social History Social History Household Members: None Housing: Other Housing Other:: [facility] Do you presently have visiting nurse or other home services: No Advance Directives: Yes Advance Directives on File: Yes Advance Directives Date on File: 09/16/20 service: No Current occupational status: retired Physical Exam Vital Signs: Vital Signs: Last Vital Signs Temp 97.9 F 02/15/23 14:21 Pulse 93 02/15/23 16:04 Resp 14 02/15/23 15:20 BP 138/77 02/15/23 16:18 Pulse Ox 100 02/15/23 14:21 O2 Del Method Room Air 02/15/23 14:21 BMI result Body Mass Index 28.7 Course Course Course Narrative: RME: 77-year-old male with a past medical history of renal stones, cerebral hemorrhage, HTN, IAN, presenting to the ED complaining of LUE weakness/numbness since 7PM last night. Reports difficulty getting dressed & couldn't tie his shoes. Denies taking AC 207/150 in triage (denies taking BP meds). +LUE weakness noted, ambulating w/steady gait EKG, labs, UA, head CT Full HPI, ROS and PE to be performed by primary ED provider. Medications Administered Discontinued Medications Generic Name Dose Route Start Last Admin Trade Name Freq PRN Reason Stop Dose Admin Nicardipine HCl 25 mg/ Sodium 260 mls @ 0 mls/hr 02/15/23 15:45 02/15/23 16:04 Chloride IVCONT 7.5 mg/hr .Q0M ZION 78 mls/hr Titration Protocol Per Protocol Medical Decision Making Lab Data 02/15/23 15:15 02/15/23 15:14 Labs: Lab Results 02/15/23 02/15/23 02/15/23 Range/Units 15:14 15:15 15:15 WBC 7.6 (4.8-10.8) X10*3/uL RBC 4.55 L (4.60-5.80) X10*6/uL Hgb 15.3 (14.0-18.0) g/dl Hct 44.1 (42.0-52.0) % MCV 96.9 (80.0-98.0) fL MCH 33.6 H (27.0-33.0) pg MCHC 34.7 (31.0-36.0) g/dl RDW 12.1 (11.0-16.0) % Plt Count 175 (160-400) X10*3/uL MPV 10.3 (9.4-12.4) fL Immature Gran % (Auto) 0.4 (0.0-0.4) % Neut % (Auto) 72.7 (45-73) % Lymph % (Auto) 16.6 L (20-40) % [place] % (Auto) 9.3 (2-11) % Eos % (Auto) 0.5 (0-4) % Baso % (Auto) 0.5 (0-2) % Lymph # (Auto) 1.3 (1.2-4.9) X10*3/uL [place] # (Auto) 0.7 (0.1-1.2) X10*3/uL Eos # (Auto) 0.0 (0.0-0.4) X10*3/uL Baso # (Auto) 0.0 (0.0-0.2) X10*3/uL Abs Immat Gran (auto) 0.03 (0.00-0.03) X10*3/uL Absolute Neuts (auto) 5.5 (2.0-8.3) x10*3/uL Absolute Nucleated RBC 0.000 (0.0-0.012) X10*3/uL Nucleated RBC % (auto) 0.0 (0.0-0.2) /100WBC PT 10.8 (10.0-13.1) SEC INR 0.9 (0.9-1.1) Sodium 139 (135-145) mmol/L Potassium 4.4 (3.3-5.1) mmol/L Chloride 107 (96-108) mmol/L Carbon Dioxide 26 (22-29) mmol/L Anion Gap 10 L (12-20) BUN 20 H (9-16) mg/dL Creatinine 1.26 (0.5-1.4) mg/dL Estim Creat Clear Calc 46.0 Estimated GFR 55 Random Glucose 98 (60-115) mg/dL Calcium 9.2 (8.4-10.2) mg/dL Magnesium 2.3 (1.6-2.6) mg/dL Total Bilirubin 0.7 (0.0-1.0) mg/dL Direct Bilirubin 0.2 (0.0-0.5) mg/dL AST 21 (5-37) U/L ALT 24 (0-40) U/L Alkaline Phosphatase 95 (39-117) U/L Troponin I High Sens (<3.5-35.0) ng/L Total Protein 6.3 L (6.5-8.0) g/dL Albumin 4.1 (3.5-5.0) g/dL 02/15/23 Range/Units 15:15 WBC (4.8-10.8) X10*3/uL RBC (4.60-5.80) X10*6/uL Hgb (14.0-18.0) g/dl Hct (42.0-52.0) % MCV (80.0-98.0) fL MCH (27.0-33.0) pg MCHC (31.0-36.0) g/dl RDW (11.0-16.0) % Plt Count (160-400) X10*3/uL MPV (9.4-12.4) fL Immature Gran % (Auto) (0.0-0.4) % Neut % (Auto) (45-73) % Lymph % (Auto) (20-40) % [place] % (Auto) (2-11) % Eos % (Auto) (0-4) % Baso % (Auto) (0-2) % Lymph # (Auto) (1.2-4.9) X10*3/uL [place] # (Auto) (0.1-1.2) X10*3/uL Eos # (Auto) (0.0-0.4) X10*3/uL Baso # (Auto) (0.0-0.2) X10*3/uL Abs Immat Gran (auto) (0.00-0.03) X10*3/uL Absolute Neuts (auto) (2.0-8.3) x10*3/uL Absolute Nucleated RBC (0.0-0.012) X10*3/uL Nucleated RBC % (auto) (0.0-0.2) /100WBC PT (10.0-13.1) SEC INR (0.9-1.1) Sodium (135-145) mmol/L Potassium (3.3-5.1) mmol/L Chloride (96-108) mmol/L Carbon Dioxide (22-29) mmol/L Anion Gap (12-20) BUN (9-16) mg/dL Creatinine (0.5-1.4) mg/dL Estim Creat Clear Calc Estimated GFR Random Glucose (60-115) mg/dL Calcium (8.4-10.2) mg/dL Magnesium (1.6-2.6) mg/dL Total Bilirubin (0.0-1.0) mg/dL Direct Bilirubin (0.0-0.5) mg/dL AST (5-37) U/L ALT (0-40) U/L Alkaline Phosphatase (39-117) U/L Troponin I High Sens 7.5 (<3.5-35.0) ng/L Total Protein (6.5-8.0) g/dL Albumin (3.5-5.0) g/dL Discharge Plan Discharge Clinical Impression: Intracranial bleed Patient Disposition: Xfer Acute Care Hospital [place] [facility] [place]: No Action fluorometholone 0.1 % drops,suspension 1 drp ophthalmic (eye) BID PRN (Reason: BLURRY VISION) amlodipine 5 mg Tablet 5 mg PO DAILY Qty: 30 0RF Protocol: Hold for SBP< HOLD for SBP < : 90 tamsulosin 0.4 mg capsule 0.4 mg PO BEDTIME Qty: 30 0RF pyridoxine (vitamin B6) 100 mg tablet 100 mg PO DAILY Qty: 90 1RF Interventions: Acute Care Transfer Worksheet (ED) Last Done: 02/15/23 16:19 Discharge Date/Time: 02/15/23 16:19
--- NOTE | 2023-02-15 14:28 | ECG_ITS ---
Test Reason : CHEST PAIN Blood Pressure : / mmHG Vent. Rate : 081 BPM Atrial Rate : 081 BPM P-R Int : 162 ms QRS Dur : 094 ms QT Int : 374 ms P-R-T Axes : 048 -55 005 degrees QTc Int : 434 ms Normal sinus rhythm Left axis deviation Abnormal ECG When compared with ECG of 23-AUG-2008 16:38, T wave amplitude has decreased in Anterolateral leads Referred By: Jewels Foreman Electronically Signed By:Jeremi Edward
--- NOTE | 2023-02-15 15:18 | ED_ITS ---
HPI - Neuro Symptoms/Deficit General Chief Complaint: Neuro Symptoms/Deficit Stated Complaint: L arm numbness Time Seen by Provider: 02/15/23 14:52 Source: patient and family Mode of arrival: ambulatory Limitations: no limitations History of Present Illness HPI Narrative: This is a 77 years old the patient presented to the emergency department complaining of left arm numbness and weakness since last night he was unable to tight his shoes and was having problem getting dressed. He arrived ambulatory to the emergency department, denies a headache speech problem Onset (ago): day(s) (1) Timing confirmed by: family member Location: other (Left arm weakness) Severity: moderate Quality: weak and numb Relieving factors: none Exacerbating factors: none Context: sudden onset On Anticoagulants: No Associated symptoms: denies other symptoms Related Data Home Medications Medication Instructions Recorded Confirmed fluorometholone 0.1 % eye 1 drp ophthalmic (eye) BID PRN 09/12/20 09/12/20 drops,suspension BLURRY VISION Previous Rx's Medication Instructions Recorded amlodipine 5 mg tablet 5 mg PO DAILY #30 tabs 09/15/20 tamsulosin 0.4 mg capsule 0.4 mg PO BEDTIME #30 caps 09/22/20 pyridoxine (vitamin B6) 100 mg 100 mg PO DAILY #90 tabs 11/01/20 tablet Allergies Allergy/AdvReac Type Severity Reaction Status Date / Time No Known Allergies Allergy Mild NO Verified 11/01/20 10:01 Review of Systems Review of Systems: Yes all other systems are reviewed and are negative Constitutional: Constitutional: Reports no additional constitutional complaints Cardiovascular: Cardiovascular: Reports no additional cardiovascular complaints Gastrointestinal: Gastrointestinal: Reports no additional gastrointestinal complaints Musculoskeletal: Musculoskeletal: Reports no additional musculoskeletal complaints Neurologic: Reports system reviewed and no additional complaints, except as documented [facility] Past Medical History [facility] Narrative: Patient has history of hypertension Medical History Hip replacement planned Renal colic Social History Social History Household Members: None Housing: Other Housing Other:: [facility] Do you presently have visiting nurse or other home services: No Advance Directives: Yes Advance Directives on File: Yes Advance Directives Date on File: 09/16/20 service: No Current occupational status: retired Physical Exam Vital Signs: Vital Signs: Last Vital Signs Temp 97.9 F 02/15/23 14:21 Pulse 93 02/15/23 16:04 Resp 14 02/15/23 15:20 BP 138/77 02/15/23 16:18 Pulse Ox 100 02/15/23 14:21 O2 Del Method Room Air 02/15/23 14:21 BMI result Body Mass Index 28.7 Const: General: cooperative Nutritional Appearance: well nourished Orientation/consciousness: patient oriented x3 HEENT: Head: Yes normal to inspection General nose exam: Normal external nose present Face and sinus: Yes normal facial exam Mouth: Normal oral and palatal mucosa present Throat: Yes posterior oropharynx normal Neck: Neck: Yes full ROM Chest: Chest palpation & inspection: normal inspection of the chest Resp: Effort & Inspection: normal respiratory effort Cardio: Jugular venous distension: no JVD Rate: regular rate Rhythm: regular rhythm GI: Inspection: Yes normal to inspection Palpation (GI): Soft to palpation, not firm and nontender Auscultation: normal bowel sounds Skin: General skin exam: no rashes or lesions noted, elasticity normal and turgor normal Lesions: no lesions Rashes: no rashes Neuro: Other: Patient is awake and alert gait is stable on examination he has 4/5 weakness in the left upper extremity he has as mild per drift the in the left General: patient oriented x3 Course Course Course Narrative: Patient presented with left arm weakness and numbness with a CT scan of the head which showed at least 3 cm x 2 sent with the intracranial bleed in the right parietal area. Will now have any neurosurgery the service of [facility] I am planning to transfer the patient to a tertiary center where Neurosurgery service is available. I explained this to the patient and the son. Initial blood pressure was 207/ 105 in the setting of intracranial bleed we will start nicardipine. Reevaluation(s) Reevaluation #1: Call was placed to [facility] transfer center they will call me back Time: 15:23 Medications Administered Discontinued Medications Generic Name Dose Route Start Last Admin Trade Name Freq PRN Reason Stop Dose Admin Nicardipine HCl 25 mg/ Sodium 260 mls @ 0 mls/hr 02/15/23 15:45 02/15/23 16:04 Chloride IVCONT 7.5 mg/hr .Q0M ZION 78 mls/hr Titration Protocol Per Protocol Medical Decision Making Medical Decision Making MDM Narrative: presented with left arm weakness Differential Diagnosis Differential Diagnoses: The differential diagnosis associated with the presentation includes Ischemic CVA/head bleed /subdural Admission/Observation Consideration of admission/observation: Escalation of care including admission/observation considered Lab Data MDM Lab Attestation statement: I reviewed the patient's lab results. 02/15/23 15:15 02/15/23 15:14 Labs: Lab Results 02/15/23 02/15/23 02/15/23 Range/Units 15:14 15:15 15:15 WBC 7.6 (4.8-10.8) X10*3/uL RBC 4.55 L (4.60-5.80) X10*6/uL Hgb 15.3 (14.0-18.0) g/dl Hct 44.1 (42.0-52.0) % MCV 96.9 (80.0-98.0) fL MCH 33.6 H (27.0-33.0) pg MCHC 34.7 (31.0-36.0) g/dl RDW 12.1 (11.0-16.0) % Plt Count 175 (160-400) X10*3/uL MPV 10.3 (9.4-12.4) fL Immature Gran % (Auto) 0.4 (0.0-0.4) % Neut % (Auto) 72.7 (45-73) % Lymph % (Auto) 16.6 L (20-40) % [place] % (Auto) 9.3 (2-11) % Eos % (Auto) 0.5 (0-4) % Baso % (Auto) 0.5 (0-2) % Lymph # (Auto) 1.3 (1.2-4.9) X10*3/uL [place] # (Auto) 0.7 (0.1-1.2) X10*3/uL Eos # (Auto) 0.0 (0.0-0.4) X10*3/uL Baso # (Auto) 0.0 (0.0-0.2) X10*3/uL Abs Immat Gran (auto) 0.03 (0.00-0.03) X10*3/uL Absolute Neuts (auto) 5.5 (2.0-8.3) x10*3/uL Absolute Nucleated RBC 0.000 (0.0-0.012) X10*3/uL Nucleated RBC % (auto) 0.0 (0.0-0.2) /100WBC PT 10.8 (10.0-13.1) SEC INR 0.9 (0.9-1.1) Sodium 139 (135-145) mmol/L Potassium 4.4 (3.3-5.1) mmol/L Chloride 107 (96-108) mmol/L Carbon Dioxide 26 (22-29) mmol/L Anion Gap 10 L (12-20) BUN 20 H (9-16) mg/dL Creatinine 1.26 (0.5-1.4) mg/dL Estim Creat Clear Calc 46.0 Estimated GFR 55 Random Glucose 98 (60-115) mg/dL Calcium 9.2 (8.4-10.2) mg/dL Magnesium 2.3 (1.6-2.6) mg/dL Total Bilirubin 0.7 (0.0-1.0) mg/dL Direct Bilirubin 0.2 (0.0-0.5) mg/dL AST 21 (5-37) U/L ALT 24 (0-40) U/L Alkaline Phosphatase 95 (39-117) U/L Total Protein 6.3 L (6.5-8.0) g/dL Albumin 4.1 (3.5-5.0) g/dL Independent Interpretation I performed an independent interpretation of an: CT Scan Interpretation: i read ct my self and interprethed Radiology Impression Radiologist Impression: INCLUDED SINUSES AT SKULL BASE: Clear SKULL AND SKIN: No fracture or bone lesion found. CT/CT head/brain wo IV con IMPRESSION: ? Acute intracranial intraparenchymal bleed in the posterior right parietal lobe 2.9 x 1.8 x 3.3 cm, there is surrounding hypodense area likely brain edema, there is mild surrounding mass effect, there is no midline shift. Mild adjacent surrounding petechial subarachnoid bleed posterior right parietal lobe. ? Intraparenchymal hemorrhage most commonly due to hemorrhagic infarct. Cannot rule out underlying pathologic process. Attention for follow-up imaging recommended. ? This critical result was discussed with? Dr. Coronel by telephone at 02/15/2023 3:36 PM and it was ascertained that the content and urgency of the report was understood at the time of direct communication. ? Independent Historian Clinical information obtained from an independent historian. History obtained from or confirmed by: Other (son) External Record Review External record reviewed: Inpatient record Critical Care Time Critical Care Time Critical Care Time: Yes Total Critical Care Time: 60 Attestation: taking carte of the pt arranging transfer Discharge Plan Discharge Clinical Impression: Intracranial bleed Patient Disposition: Xfer [facility] Transfer Details: No neurosurgery at [facility] Prescriptions: No Action fluorometholone 0.1 % drops,suspension 1 drp ophthalmic (eye) BID PRN (Reason: BLURRY VISION) amlodipine 5 mg Tablet 5 mg PO DAILY Qty: 30 0RF Protocol: Hold for SBP< HOLD for SBP < : 90 tamsulosin 0.4 mg capsule 0.4 mg PO BEDTIME Qty: 30 0RF pyridoxine (vitamin B6) 100 mg tablet 100 mg PO DAILY Qty: 90 1RF Interventions: Acute Care Transfer Worksheet (ED) Last Done: 02/15/23 16:19 Discharge Date/Time: 02/15/23 16:19
[2023-02-15 15:19] LABS: MANUAL DIFF FLAG NO
[2023-02-15 15:20] VITALS: BP 165/84; PULSE 75; RESP 14
[2023-02-15 15:20] LABS: Basophils Percent Auto 0.5 % (0-2); Eosinophils Percent Auto 0.5 % (0-4); Hematocrit 44.1 % (42.0-52.0); Hemoglobin 15.3 g/dl (14.0-18.0); Imm Gran Abs Auto 0.03 X10*3/uL (0.00-0.03); Imm Gran Pct Auto 0.4 % (0.0-0.4); Lymphocytes Absolute Auto 1.3 X10*3/uL (1.2-4.9); Lymphocytes Percent Auto 16.6 % (20-40); Mean Corpuscular HGB Conc 34.7 g/dl (31.0-36.0); Mean Corpuscular Hemoglobin 33.6 pg (27.0-33.0); Mean Corpuscular Volume 96.9 fL (80.0-98.0); Mean Platelet Volume 10.3 fL (9.4-12.4); Monocytes Absolute Auto 0.7 X10*3/uL (0.1-1.2); Monocytes Percent Auto 9.3 % (2-11); Neutrophils Absolute Auto 5.5 x10*3/uL (2.0-8.3); Neutrophils Percent Auto 72.7 % (45-73); Platelet Count 175 X10*3/uL (160-400); Red Blood Count 4.55 X10*6/uL (4.60-5.80); Red Cell Distribution Width 12.1 % (11.0-16.0); White Blood Count 7.6 X10*3/uL (4.8-10.8)
[2023-02-15 15:25] LABS: INTERNATIONAL NORM RATIO 0.9 (0.9-1.1); Prothrombin Time 10.8 SEC (10.0-13.1)
[2023-02-15 15:43] LABS: Alanine Aminotransferase 24 U/L (0-40); Albumin Level 4.1 g/dL (3.5-5.0); Alkaline Phosphatase 95 U/L (39-117); Anion Gap 10 (12-20); Aspartate Amino Transferase 21 U/L (5-37); Bilirubin Direct 0.2 mg/dL (0.0-0.5); Bilirubin Total 0.7 mg/dL (0.0-1.0); Blood Urea Nitrogen 20 mg/dL (9-16); Calcium 9.2 mg/dL (8.4-10.2); Carbon Dioxide 26 mmol/L (22-29); Chloride 107 mmol/L (96-108); Estimated Glomerular Filt Rate 55; Glucose Random 98 mg/dL (60-115); Magnesium 2.3 mg/dL (1.6-2.6); Potassium 4.4 mmol/L (3.3-5.1); Sodium 139 mmol/L (135-145); Total Protein 6.3 g/dL (6.5-8.0)
[2023-02-15 15:46] VITALS: BP 187/89; PULSE 76
[2023-02-15] MEDS: niCARdipine HCL 25 MG in 0.9 % Sodium Chloride 250 ML 52 MG IVCONT (15:46)
--- NOTE | 2023-02-15 15:54 | PC.NURSE ---
attempt to call [facility] for report, no answer
--- NOTE | 2023-02-15 16:03 | PC.NURSE ---
second attempt to call [facility] with no answer
[2023-02-15 16:04] VITALS: BP 170/83; PULSE 93
--- NOTE | 2023-02-15 16:17 | PC.NURSE ---
third attempt to contact [facility]
[2023-02-15 16:18] VITALS: BP 138/77
[2023-02-15 16:50] LABS: Troponin-I High Sensitivity 7.5 ng/L (<3.5-35.0)
== END 2023-02-15 16:19 | disposition short-term general hospital (02) ==
PROVIDERS: Physician Assistant; Emergency Provider Emergency Medicine; PCP Internal Medicine
DX: I62.9 Nontraumatic intracranial hemorrhage, unspecified (principal); G83.24 Monoplegia of upper limb affecting left nondominant side; R20.0 Anesthesia of skin; I10 Essential (primary) hypertension; Z79.899 Other long term (current) drug therapy
CPT/HCPCS: 36415; 70450; 80048; 80076; 83735; 84484; 85025; 85610; 93005; 96365; 99285

== ENCOUNTER 2023-06-16 23:06 | Emergency (ER) | payer MEDICARE, SELFPAY ==
--- NOTE | 2023-06-16 | ECG_ITS ---
Test Reason : abdominal pain Blood Pressure : / mmHG Vent. Rate : 081 BPM Atrial Rate : 081 BPM P-R Int : 176 ms QRS Dur : 092 ms QT Int : 362 ms P-R-T Axes : 042 -43 001 degrees QTc Int : 420 ms Normal sinus rhythm Left axis deviation Minimal voltage criteria for LVH, may be normal variant ( R in aVL ) Anterior infarct , age undetermined Abnormal ECG When compared with ECG of 15-FEB-2023 15:08, Anterior infarct is now Present Referred By: Generic ED Physician Electronically Signed By:MARYANNE RICHARDS
--- NOTE | ~2023-06-16 | XR_ITS ---
EXAMINATION: XR CHEST CLINICAL INFORMATION: Epigastric pain COMPARISON: None available. TECHNIQUE: Frontal view of the chest was obtained. FINDINGS: The lungs are clear with no focal consolidation. No evidence of pneumothorax, pulmonary edema, or pleural effusions. Cardiac size is within normal limits. Calcification is present at the aortic arch. No acute osseous findings are seen. XR/XR chest 1V IMPRESSION: No acute cardiopulmonary findings.
--- NOTE | ~2023-06-16 | CT_ITS ---
EXAMINATION: CT ABDOMEN AND PELVIS WITHOUT CONTRAST CLINICAL INFORMATION: Abdominal and back pain, AAA versus renal stone COMPARISON: 09/13/2020 TECHNIQUE: Multidetector volumetric imaging was performed from the superior aspect of the liver through the pubic symphysis. Sagittal and coronal reformatted images were obtained on the technologist's workstation. This CT examination was performed using dose optimization techniques as appropriate, variously including the following: *Automated exposure control *Adjustment of mA and/or kV according to patient size (this includes techniques or standardized protocols for targeted exams where dose is matched to indication/reason for exam; i.e. extremities or head) *Use of iterative reconstruction technique DLP: 578 mGy-cm FINDINGS: LUNG BASES: The visualized lung bases are unremarkable. LIVER, GALLBLADDER, AND BILIARY TREE: A few calcified granulomas are present in the inferior right hepatic lobe. No intrahepatic biliary ductal dilatation. Cholelithiasis is noted, without appreciable gallbladder wall thickening or surrounding inflammation. PANCREAS: Mildly atrophic. SPLEEN: Unremarkable. ADRENAL GLANDS: Unremarkable. KIDNEYS AND URETERS: No hydronephrosis or obstructing calculus bilaterally. There are several scattered bilateral renal calculi, right greater than left measuring up to approximately 5 mm. BLADDER: Partially distended with mild diffuse mural prominence. GASTROINTESTINAL TRACT: Colonic diverticulosis is noted. The small and large bowel are otherwise unremarkable without evidence of obstruction or pericolonic inflammatory change. The appendix is unremarkable. No free fluid or free air is seen. ABDOMINAL WALL: No significant hernia is appreciated. LYMPH NODES: Normal. VASCULAR: No evidence of aortic aneurysm. There is atherosclerotic calcification along the aorta and iliac arteries. PELVIC VISCERA: Mildly prominent prostate gland. OSSEOUS STRUCTURES: Degenerative changes are noted in the spine. Status post right total hip arthroplasty. CT/CT abdomen pelvis wo IV con IMPRESSION: 1. No hydronephrosis or obstructing calculus. Several scattered bilateral renal calculi. 2. Cholelithiasis. 3. Colonic diverticulosis without diverticulitis.
--- NOTE | ~2023-06-16 | US_ITS ---
EXAMINATION: US ABDOMEN LIMITED CLINICAL INFORMATION: Epigastric pain. COMPARISON: CT from the same day TECHNIQUE: Real-time imaging of the right upper quadrant abdominal viscera. FINDINGS: GALLBLADDER: Multiple mobile gallstones are present, none of which appear impacted. Gallbladder wall thickness is within normal limits. No pericholecystic fluid is seen. Per technologist note, no right upper quadrant tenderness was reported during the exam. COMMON BILE DUCT: Normal in caliber measuring 0.6 cm in diameter. US/US abdomen limited IMPRESSION: Cholelithiasis without additional findings of cholecystitis.
--- NOTE | ~2023-06-16 | CT_ITS ---
EXAMINATION: CT HEAD WITHOUT CONTRAST CLINICAL INFORMATION: Left arm numbness, history of intracranial bleed COMPARISON: 02/15/2023 TECHNIQUE: Contiguous axial imaging was performed from the skull base to vertex without intravenous administration of contrast. This CT examination was performed using dose optimization techniques as appropriate, variously including the following: *Automated exposure control *Adjustment of mA and/or kV according to patient size (this includes techniques or standardized protocols for targeted exams where dose is matched to indication/reason for exam; i.e. extremities or head) *Use of iterative reconstruction technique DLP: 611 mGy-cm FINDINGS: There is no evidence of acute intracranial hemorrhage or territorial infarction. No abnormal mass-effect or midline shift is seen. Solomon to white matter differentiation is well preserved. No extra-axial fluid collections are identified. The ventricles are normal in size. There is moderate periventricular white matter hypoattenuation consistent with chronic small vessel ischemic disease. There is a region of encephalomalacia in the high right parietal lobe at the site of prior intracranial hemorrhage. Mild volume loss is noted. The osseous structures and soft tissues are normal. The mastoid air cells and visualized portions of the paranasal sinuses are well-aerated. CT/CT head/brain wo IV con IMPRESSION: No acute intracranial hemorrhage. Chronic small vessel ischemic disease and volume loss. Region of encephalomalacia in the high right parietal lobe at the site of prior intracranial hemorrhage. In the setting of chronic changes in the right cerebral hemisphere, further evaluation with MRI would be helpful to exclude superimposed acute infarct in the setting of left arm numbness.
[2023-06-16 23:09] VITALS: BP 166/75; PULSE 79; RESP 18; TEMP 36.2; O2SAT 99; BMI 27.4
[2023-06-16 23:44] VITALS: BP 161/76; PULSE 80; RESP 18; TEMP 36.4; O2SAT 98
--- NOTE | 2023-06-17 00:05 | ED_ITS ---
HPI - General Adult General Chief complaint: General Medical Stated complaint: back pain, history of stroke Time Seen by Provider: 06/16/23 23:50 Source: patient and family Mode of arrival: ambulatory Limitations: no limitations History of Present Illness HPI narrative: A 77-year-old male came in for evaluation of back pain radiates around to the front of the abdomen. Dull aching pain started in the mid back radiates to front of the abdomen started about 4 hours ago has a mild and progressively getting worse worse of the pain was 10/10 now pain is about 3/10 associated with nausea with no vomiting, no fever, no chills, no dysuria, no frequency urination, pain is better if he stays still, no clear aggravating features. Patient had a history of a mini hemorrhage stroke 4 months ago left him with no neurological deficit patient stated that his been getting left arm numbness and intermittent bilateral facial tingling over the past few days now patient has no neurological symptoms , no weakness, no numbness. Patient declined any headache or neck pain, no CP or SOB. Patient had no vomiting, normal bowel movement was yesterday and passing gases, patient with history of kidney stones. Related Data Home Medications Medication Instructions Recorded Confirmed fluorometholone 0.1 % eye 1 drp ophthalmic (eye) BID PRN 09/12/20 09/12/20 drops,suspension BLURRY VISION Previous Rx's Medication Instructions Recorded amlodipine 5 mg tablet 5 mg PO DAILY #30 tabs 09/15/20 tamsulosin 0.4 mg capsule 0.4 mg PO BEDTIME #30 caps 09/22/20 pyridoxine (vitamin B6) 100 mg 100 mg PO DAILY #90 tabs 11/01/20 tablet Allergies Allergy/AdvReac Type Severity Reaction Status Date / Time No Known Allergies Allergy Mild NO Verified 06/16/23 23:09 Review of Systems Review of Systems: All other systems are reviewed and are negative Constitutional: Reports as per HPI and Reports no additional constitutional complaints Eyes: Reports as per HPI and Reports no additional eye complaints Reports system reviewed and no additional complaints, except as documented Cardiovascular: Reports as per HPI and Reports no additional cardiovascular complaints Respiratory: Reports as per HPI and Reports no additional respiratory complaints Gastrointestinal: Reports as per HPI and Reports no additional gastrointestinal complaints Genitourinary: Reports no additional female genitourinary complaints Musculoskeletal: Reports no additional musculoskeletal complaints Skin/Breast: Reports system reviewed and no additional complaints, except as docu Psychiatric: Reports no additional psychiatric complaints Endocrine: Reports no additional endocrine complaints Hematologic/Lymphatic: Reports no additional hematologic/lymphatic complaints Allergic/Immunologic: Reports no additional allergic/immunologic complaints Reports system reviewed and no additional complaints, except as documented and Reports Abnormal speech present [facility] Past Medical History Medical History Hip replacement planned Renal colic Social History Social History Household Members: None Housing: Other Housing Other:: [facility] Do you presently have visiting nurse or other home services: No Advance Directives: Yes Advance Directives on File: Yes Advance Directives Date on File: 09/16/20 service: No Current occupational status: retired Physical Exam ED Vital Signs: Vital Signs - 24 hr 06/16/23 23:09 06/16/23 23:44 Temperature 97.1 F 97.6 F Pulse Rate 79 80 Respiratory Rate 18 18 Blood Pressure 166/75 H 161/76 H Pulse Oximetry 99 98 Oxygen Delivery Method Room Air Room Air BMI result Body Mass Index 27.4 Vital signs have been reviewed as appeared to be correct. Blood pressure normal. Heart rate normal. Respiration rate normal. Temperature normal. Oxygen saturation normal. Appearance: Alert. Oriented X3. No acute distress. Head: Normal external exam. Normocephalic. Atraumatic. No Montoya signs noted. No raccoon eyes noted Eyes: PERRLA. EOMI. Conjunctiva and sclera normal. Eyelids normal. ENT: TM's Normal. Pharynx normal. Uvula midline. Moist mucous membranes. No trismus noted. No drooling noted. No muffled voice noted. Neck: Normal inspection. Neck supple. FROM. No adenopathy. Thyroid Normal. No meningeal signs. No neck mass noted. CVS: Normal heart rate and rhythm. Heart sound normal. No murmurs noted. Pulses normal throughout. Respiratory: No respiratory distress. Painless inspiration. Breath sounds normal. No wheezes/rales/rhonchi noted. Chest nontender. No accessory muscle usage noted or decreased air movement noted. Abdomen: Soft and nontender. Bowel sounds normal in all 4 quadrants. No distention noted. No organomegaly noted. No visible injury noted. Back: No CVA tenderness. Full range of motion noted. Skin: Skin warm and dry. Normal skin color. Normal skin turgor. No rash es/lesions/lacerations noted. Extremities: No lower extremity edema. Extremities exhibit normal range of motion. Extremities nontender. Neuro: Oriented X 3. Cranial nerve exam: II-XII are grossly intact No motor deficit. No sensory deficit. Reflexes normal. NIH Stroke Scale Time: 00:14 Level of Consciousness: Alert Level of Consciousness Questions: Answers both questions correctly Level of Consciousness Commands: Performs both tasks correctly Best Gaze: Normal Visual: No visual loss Facial Palsy: Normal Motor Arm (Right): No drift Motor Arm (Left): No drift Motor Leg (Right): No drift Motor Leg (Left): No drift Limb Ataxia: Absent Sensory: Normal Best Language: No aphasia Dysarthia: Normal Extinction and Inattention: No abnormality Score: 0 Course Course Course Narrative: 77-year-old male came in for evaluation of back pain radiates to the abdomen started before arrival to the emergency department, pain improved for short time in the emergency department then now pain is exacerbating gain, nonspecific dull aching pain started in the back to the front of the abdomen no abdominal tenderness, CT of the abdomen and pelvis showed nonobstructive kidney stone with no hydronephrosis, no AAA, normal appendix with cholelithiasis no CT evidence of acute cholecystitis. Patient remained neurologically intact CT of the head is unremarkable for interp retation bleed. Lab is significant for leukocytosis and possible UTI do not meet SIRS criteria. The plan will obtain an abdominal ultrasound rule out acute cholecystitis, repeat troponin in 3 hours, pain control case signed out to Dr. Galindo. Medications Administered Discontinued Medications Generic Name Dose Route Start Last Admin Trade Name Freq PRN Reason Stop Dose Admin Acetaminophen 650 mg 06/17/23 00:02 06/17/23 01:09 Acetaminophen 325 Mg Tablet PO 06/17/23 00:03 650 mg ONCE ONE Administration Medical Decision Making Differential Diagnosis Differential Diagnoses: The differential diagnosis associated with the pres entation includes (AAA, pancreatitis, gallbladder disease, ACS, gastritis, kidney stone, UTI, electrolyte abnormality, severe anemia.) Admission/Observation Consideration of admission/observation: Escalation of care including admission/observation considered Lab Data MDM Lab Attestation statement: I reviewed the patient's lab results. 06/17/23 01:06 06/17/23 01:06 Labs: Lab Results 06/16/23 06/17/23 06/17/23 Range/Units 00:20 00:38 01:06 WBC 15.5 H (4.8-10.8) X10*3/uL RBC 4.45 L (4.60-5.80) X10*6/uL Hgb 15.1 (14.0-18.0) g/dl Hct 42.2 (42.0-52.0) % MCV 94.8 (80.0-98.0) fL MCH 33.9 H (27.0-33.0) pg MCHC 35.8 (31.0-36.0) g/dl RDW 12.0 (11.0-16.0) % Plt Count 165 (160-400) X10*3/uL MPV 10.1 (9.4-12.4) fL Immature Gran % (Auto) 0.5 H (0.0-0.4) % Neut % (Auto) 90.0 H (45-73) % Lymph % (Auto) 4.4 L (20-40) % [place] % (Auto) 4.8 (2-11) % Eos % (Auto) 0.1 (0-4) % Baso % (Auto) 0.2 (0-2) % Lymph # (Auto) 0.7 L (1.2-4.9) X10*3/uL [place] # (Auto) 0.7 (0.1-1.2) X10*3/uL Eos # (Auto) 0.0 (0.0-0.4) X10*3/uL Baso # (Auto) 0.0 (0.0-0.2) X10*3/uL Abs Immat Gran (auto) 0.08 H (0.00-0.03) X10*3/uL Absolute Neuts (auto) 14.0 H (2.0-8.3) x10*3/uL Absolute Nucleated RBC 0.000 (0.0-0.012) X10*3/uL Nucleated RBC % (auto) 0.0 (0.0-0.2) /100WBC Sodium (135-145) mmol/L Potassium (3.3-5.1) mmol/L Chloride (96-108) mmol/L Carbon Dioxide (22-29) mmol/L Anion Gap (12-20) BUN (9-16) mg/dL Creatinine (0.5-1.4) mg/dL Estim Creat Clear Calc Estimated GFR Random Glucose (60-115) mg/dL Calcium (8.4-10.2) mg/dL Total Bilirubin (0.0-1.0) mg/dL AST (5-37) U/L ALT (0-40) U/L Alkaline Phosphatase (39-117) U/L Troponin I High Sens (<3.5-35.0) ng/L Total Protein (6.5-8.0) g/dL Albumin (3.5-5.0) g/dL Lipase (8-78) U/L Urine Color Yellow Urine Appearance Clear Urine pH 5.5 (5.0-9.0) Ur Specific [place] 1.020 (1.005-1.025) Urine Protein Negative (Neg-Trace) mg/dL Urine Glucose (UA) Negative (Negative) mg/dL Urine Ketones Negative (Negative) mg/dL Urine Blood Negative (Negative) Urine Nitrite Negative (Negative) Ur Leukocyte Esterase Small (1+) H (Negative) Urine RBC 0-2 (0-2) /HPF Urine WBC 11-20 H (0-5) /HPF Ur Squamous Epith Cells 0-2 (0-2) /HPF Urine Bacteria None Seen (None Seen) Hyaline Casts 0-2 (0-2) /LPF COVID-19 (DAVID) Negative (Negative) COVID-19 Clin Com See Note 06/17/23 06/17/23 Range/Units 01:06 01:06 WBC (4.8-10.8) X10*3/uL RBC (4.60-5.80) X10*6/uL Hgb (14.0-18.0) g/dl Hct (42.0-52.0) % MCV (80.0-98.0) fL MCH (27.0-33.0) pg MCHC (31.0-36.0) g/dl RDW (11.0-16.0) % Plt Count (160-400) X10*3/uL MPV (9.4-12.4) fL Immature Gran % (Auto) (0.0-0.4) % Neut % (Auto) (45-73) % Lymph % (Auto) (20-40) % [place] % (Auto) (2-11) % Eos % (Auto) (0-4) % Baso % (Auto) (0-2) % Lymph # (Auto) (1.2-4.9) X10*3/uL [place] # (Auto) (0.1-1.2) X10*3/uL Eos # (Auto) (0.0-0.4) X10*3/uL Baso # (Auto) (0.0-0.2) X10*3/uL Abs Immat Gran (auto) (0.00-0.03) X10*3/uL Absolute Neuts (auto) (2.0-8.3) x10*3/uL Absolute Nucleated RBC (0.0-0.012) X10*3/uL Nucleated RBC % (auto) (0.0-0.2) /100WBC Sodium 141 (135-145) mmol/L Potassium 4.3 (3.3-5.1) mmol/L Chloride 110 H (96-108) mmol/L Carbon Dioxide 25 (22-29) mmol/L Anion Gap 10 L (12-20) BUN 33 H (9-16) mg/dL Creatinine 1.40 (0.5-1.4) mg/dL Estim Creat Clear Calc 41.8 Estimated GFR 49 Random Glucose 135 H (60-115) mg/dL Calcium 9.6 (8.4-10.2) mg/dL Total Bilirubin 0.4 (0.0-1.0) mg/dL AST 21 (5-37) U/L ALT 30 (0-40) U/L Alkaline Phosphatase 103 (39-117) U/L Troponin I High Sens 4.2 (<3.5-35.0) ng/L Total Protein 6.9 (6.5-8.0) g/dL Albumin 4.3 (3.5-5.0) g/dL Lipase 27 (8-78) U/L Urine Color Urine Appearance Urine pH (5.0-9.0) Ur Specific [place] (1.005-1.025) Urine Protein (Neg-Trace) mg/dL Urine Glucose (UA) (Negative) mg/dL Urine Ketones (Negative) mg/dL Urine Blood (Negative) Urine Nitrite (Negative) Ur Leukocyte Esterase (Negative) Urine RBC (0-2) /HPF Urine WBC (0-5) /HPF Ur Squamous Epith Cells (0-2) /HPF Urine Bacteria (None Seen) Hyaline Casts (0-2) /LPF COVID-19 (DAVID) (Negative) COVID-19 Clin Com Independent Interpretation I performed an independent interpretation of an: CT Scan (Head/abdomen pelvis: No acute pathology.) Radiology Impression Discussion of test interpretation with radiology: I have reviewed the radiologist's reading. (No acute intracranial hemorrhage. Chronic small vessel ischemic disease and volume loss. Region of encephalomalacia in the high right parietal lobe at the site of prior intracranial hemorrhage. In the setting of chronic changes in the right cerebral hemisphere, further evaluation with MRI would be h) Radiologist Impression: 1.? No hydronephrosis or obstructing calculus. Several scattered bilateral renal calculi. 2.? Cholelithiasis. 3.? Colonic diverticulosis without diverticulitis. ? Discharge Plan Discharge Clinical Impression: Acute UTI, Abdominal pain Patient Disposition: Still a Patient Prescriptions: No Action fluorometholone 0.1 % drops,suspension 1 drp ophthalmic (eye) BID PRN (Reason: BLURRY VISION) amlodipine 5 mg Tablet 5 mg PO DAILY Qty: 30 0RF Protocol: Hold for SBP< HOLD for SBP < : 90 tamsulosin 0.4 mg capsule 0.4 mg PO BEDTIME Qty: 30 0RF pyridoxine (vitamin B6) 100 mg tablet 100 mg PO DAILY Qty: 90 1RF
[2023-06-17 00:45] LABS: Appearance Urine Clear; Color Urine Yellow; Glucose Urine UA Negative (Negative); Leukocyte Esterase Urine Small (1+) (Negative); Nitrite Urine Negative (Negative); PH 5.5 (5.0-9.0); UMIC TRIGGER UACC YES; Urine Blood Negative (Negative); Urine Ketones Negative (Negative); Urine Protein Negative (Neg-Trace)
[2023-06-17 00:50] LABS: Bacteria Urine None Seen (None Seen); Hyaline Casts Urine 0-2 /LPF (0-2); RBC Urine 0-2 /HPF (0-2); Squamous Epithelial Cell Urine 0-2 /HPF (0-2); UACC Culture Trigger YES
[2023-06-17 00:52] LABS: COVID-19 Test Negative (Negative); IDNOW Serial# 6674DD1D
[2023-06-17] MEDS: Acetaminophen 325 MG TABLET 650 MG PO (01:09)
[2023-06-17 01:10] LABS: MANUAL DIFF FLAG NO
[2023-06-17 01:11] LABS: Basophils Percent Auto 0.2 % (0-2); Eosinophils Percent Auto 0.1 % (0-4); Hematocrit 42.2 % (42.0-52.0); Hemoglobin 15.1 g/dl (14.0-18.0); Imm Gran Abs Auto 0.08 X10*3/uL (0.00-0.03); Imm Gran Pct Auto 0.5 % (0.0-0.4); Lymphocytes Absolute Auto 0.7 X10*3/uL (1.2-4.9); Lymphocytes Percent Auto 4.4 % (20-40); Mean Corpuscular HGB Conc 35.8 g/dl (31.0-36.0); Mean Corpuscular Hemoglobin 33.9 pg (27.0-33.0); Mean Corpuscular Volume 94.8 fL (80.0-98.0); Mean Platelet Volume 10.1 fL (9.4-12.4); Monocytes Absolute Auto 0.7 X10*3/uL (0.1-1.2); Monocytes Percent Auto 4.8 % (2-11); Platelet Count 165 X10*3/uL (160-400); Red Blood Count 4.45 X10*6/uL (4.60-5.80); White Blood Count 15.5 X10*3/uL (4.8-10.8)
[2023-06-17 01:25] LABS: Alanine Aminotransferase 30 U/L (0-40); Albumin Level 4.3 g/dL (3.5-5.0); Alkaline Phosphatase 103 U/L (39-117); Anion Gap 10 (12-20); Aspartate Amino Transferase 21 U/L (5-37); Bilirubin Total 0.4 mg/dL (0.0-1.0); Blood Urea Nitrogen 33 mg/dL (9-16); Calcium 9.6 mg/dL (8.4-10.2); Carbon Dioxide 25 mmol/L (22-29); Chloride 110 mmol/L (96-108); Creatinine Clr Calc Pharmacy 41.8; Estimated Glomerular Filt Rate 49; Glucose Random 135 mg/dL (60-115); Lipase 27 U/L (8-78); Potassium 4.3 mmol/L (3.3-5.1); Sodium 141 mmol/L (135-145); Total Protein 6.9 g/dL (6.5-8.0)
[2023-06-17 01:30] LABS: Troponin-I High Sensitivity 4.2 ng/L (<3.5-35.0)
[2023-06-17 01:53] VITALS: BP 147/68; PULSE 82; RESP 18; TEMP 36.5; O2SAT 98
[2023-06-17 02:05] VITALS: RESP 18
[2023-06-17] MEDS: cefTRIAXone sodium 1 GM in 0.9 % Sodium Chloride 50 ML IV (02:05)
[2023-06-17] MEDS: Morphine Sulfate 2 MG/ML CARTRIDGE IVPUSH (02:05)
[2023-06-17] MEDS: 0.9 % Sodium Chloride 1,000 ML 999 ML IV ×2 (02:19→02:27)
[2023-06-17 04:05] VITALS: BP 121/64; PULSE 88; RESP 18; TEMP 36.7; O2SAT 97
[2023-06-17 04:49] LABS: Troponin-I High Sensitivity 5.9 ng/L (<3.5-35.0)
== END 2023-06-17 05:39 | disposition home or self-care (01) ==
PROVIDERS: Emergency Medicine; Emergency Provider Emergency Medicine; PCP Internal Medicine
DX: N39.0 Urinary tract infection, site not specified (principal); R10.9 Unspecified abdominal pain; M54.9 Dorsalgia, unspecified; K80.20 Calculus of gallbladder without cholecystitis without obstruction; Z86.73 Personal history of transient ischemic attack (TIA), and cerebral infarction without residual deficits; Z20.822 Contact with and (suspected) exposure to COVID-19
CPT/HCPCS: 36415; 70450; 71045; 74176; 76705; 80053; 81001; 83690; 84484; 85025; 87086; 87635; 93005; 96374; 96375; 99284; J0696; J2270

== ENCOUNTER 2023-12-06 09:41 | Emergency (ER) | payer MEDICARE, SELFPAY ==
--- NOTE | ~2023-12-06 | CT_ITS ---
EXAMINATION: CT ABDOMEN AND PELVIS WITH CONTRAST CLINICAL INFORMATION: 78-year-old male with bilateral back pain COMPARISON: 06/17/2023 TECHNIQUE: Multidetector volumetric images were obtained from the superior aspect of the liver through the pubic symphysis following administration 85 mL of Omnipaque 350 intravenous contrast. Sagittal and coronal reformatted images were obtained on the technologist's workstation. Oral contrast: No This CT examination was performed using dose optimization techniques as appropriate, variously including the following: *Automated exposure control *Adjustment of mA and/or kV according to patient size (this includes techniques or standardized protocols for targeted exams where dose is matched to indication/reason for exam; i.e. extremities or head) *Use of iterative reconstruction technique DLP: 437 mGy-cm FINDINGS: LUNG BASES: The visualized lung bases are unremarkable. LIVER, GALLBLADDER, AND BILIARY TREE: The liver is normal in size, shape, and attenuation. No focal hepatic lesion or biliary ductal dilatation is present. The abnormal with multiple partially calcified stones but no gallbladder wall thickening or pericholecystic fluid collection. CBD is not dilated without evidence of choledocholithiasis. PANCREAS: Unremarkable. SPLEEN: Unremarkable. ADRENAL GLANDS: There is hypertrophy of the left adrenal gland. KIDNEYS AND URETERS: The multiple punctate nonobstructing calculi seen bilaterally with the largest stone on the left measured 0.3 cm. There is no hydroureteronephrosis bilaterally. BLADDER: Unremarkable. GASTROINTESTINAL TRACT: There are changes of diverticulosis without diverticulitis through the colon. Normal appendix visualized. Small bowel loops are normal. ABDOMINAL WALL: No significant hernia is appreciated. LYMPH NODES: Normal. VASCULAR: Unremarkable. PELVIC VISCERA: Prostate is enlarged heterogeneous. Coarse calcifications seen in the prostate gland. OSSEOUS STRUCTURES: Patient is status post total hip replacement on the right. The multilevel degenerative changes in lumbar spine. No fractures, spondylolysis or listhesis seen. CT/CT abdomen pelvis w IV con IMPRESSION: 1. Cholelithiasis without evidence of cholecystitis. 2. Bilateral nephrolithiasis without hydroureteronephrosis. 3. Diverticulosis without diverticulitis. 4. Prostatic hypertrophy. 5. 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 Fleischner guidelines were followed.
--- NOTE | ~2023-12-06 | XR_ITS ---
EXAMINATION: XR CHEST CLINICAL INFORMATION: Back pain radiating to the front COMPARISON: 06/17/2023 TECHNIQUE: 2 views of the chest were obtained. FINDINGS: There is no acute finding. The lung sim are grossly clear. The cardiac silhouette is within normal limits. There is no effusion. Tortuous versus ectatic arch and descending aorta. There is mild to moderate degeneration in the thoracic spine. No evidence for an acute compression injury. cannot exclude a small nodule in the right lower lung measuring 4 to 5 mm XR/XR chest 2V IMPRESSION: There is no acute finding here. Moderate degeneration in the thoracic spine without acute compression injury. The lung sim are grossly clear. No effusion. Cannot exclude a small nodule in the right lower lung zone 4-[address] for full evaluation. This may be done on an outpatient basis.
[2023-12-06 09:45] VITALS: BP 170/92; PULSE 100; RESP 18; TEMP 36.1; O2SAT 96; BMI 26.6
--- NOTE | 2023-12-06 09:52 | ED.BACK ---
HPI - Back Pain/Injury General Chief Complaint: Back Pain/Injury Stated Complaint: back discomfort Time Seen by Provider: 12/06/23 09:51 Source: patient and family Mode of arrival: ambulatory Limitations: no limitations History of Present Illness HPI Narrative: Patient is an 78-year-old male with history of CVA, HTN, kidney stones presenting to the emergency department with complaint of bilateral mid back pain radiating through to abdomen since last night. He denies fall or other trauma. Denies recent heavy lifting or other strenuous activity. States that he exercises daily. He is not anticoagulated. He denies any nausea, vomiting, diarrhea, or constipation. He denies dysuria, frequency, hematuria or other urinary symptoms. Denies fevers. Denies any chest pain, palpitations, dyspnea. States that he was seen here for similar symptoms several months ago. He did not take any [id number] medications for his symptoms. MD elicited complaint: back pain Pertinent past history: kidney stones Onset (ago): hour(s) Timing: constant Severity: similar to previous episodes Similar Symptoms Previously: Yes Quality: aching Location: thoracic spine (bilateral paraspinal) Radiation: abdomen Exacerbating factors: movement Relieving factors: none Associated symptoms: denies other symptoms Work related injury: No Related Data Home Medications Medication Instructions Recorded Confirmed fluorometholone 0.1 % eye 1 drp ophthalmic (eye) BID PRN 09/12/20 09/12/20 drops,suspension BLURRY VISION Previous Rx's Medication Instructions Recorded amlodipine 5 mg tablet 5 mg PO DAILY #30 tabs 09/15/20 tamsulosin 0.4 mg capsule 0.4 mg PO BEDTIME #30 caps 09/22/20 pyridoxine (vitamin B6) 100 mg 100 mg PO DAILY #90 tabs 11/01/20 tablet cefuroxime axetil 500 mg tablet 500 mg PO BID #14 tabs 06/17/23 cyclobenzaprine 5 mg tablet 5 mg PO TID PRN muscle spasm #10 12/06/23 tabs lidocaine 5 % topical patch 1 patch topical DAILY #15 ea 12/06/23 Allergies Allergy/AdvReac Type Severity Reaction Status Date / Time No Known Allergies Allergy Mild NO Verified 06/16/23 23:09 Review of Systems Review of Systems: As per HPI. Yes all other systems are reviewed and are negative Constitutional: Constitutional: Reports as per HPI [facility] Past Medical History Medical History Hip replacement planned Renal colic Social History Social History Household Members: None Housing: Other Housing Other:: [facility] Do you presently have visiting nurse or other home services: No Comment: pt has steady gait Advance Directives: Yes Advance Directives on File: Yes Advance Directives Date on File: 09/16/20 service: No Current occupational status: retired Physical Exam Vital Signs: Vital Signs: Last Vital Signs Temp 98.5 F 12/06/23 13:00 Pulse 100 12/06/23 13:00 Resp 18 12/06/23 13:00 BP 154/82 H 12/06/23 13:00 Pulse Ox 96 12/06/23 13:00 O2 Del Method Room Air 12/06/23 13:00 BMI result Body Mass Index 26.6 Vital signs have been reviewed and appear to be correct. Blood pressure elevated. Heart rate normal. Respiratory rate normal. Temperature normal. Oxygen saturation normal. Const: General: cooperative, healthy appearing and no acute distress Orientation/consciousness: oriented to person, oriented to place, oriented to time and patient oriented x3 Limitations: no limitations HEENT: Head: Yes normocephalic and Yes atraumatic Ears: external ears normal General nose exam: Normal external nose present Face and sinus: Yes face symmetric Mouth: oropharynx normal and moist mucous membranes Throat: Yes uvula midline Eyes: Pupils: Equal, round and reactive pupils present Neck: Neck: Yes normal visual inspection, Yes no meningeal signs and Yes supple Resp: Effort & Inspection: normal respiratory effort and able to speak in complete sentences Auscultation: clear to auscultation bilaterally Cardio: Rate: regular rate Rhythm: regular rhythm Heart sounds: S1 normal heart sound present and S2 normal heart sound present GI: Palpation (GI): Soft to palpation and nontender Auscultation: normoactive bowel sounds : General: Yes no CVA tenderness Back/Spine/Pelvis: Back: no CVA tenderness Cervical Spine: normal cervical lordosis, cervical ROM normal, No pain with cervical ROM, No Cervical spine tenderness and No step off deformity Thoracic/Lumbar Spine: thoracic and lumbar spine normal to inspection, No Thoracic/lumbar spine scar(s), thoraco-lumbar ROM normal, straight leg raise negative bilaterally, pain with thoraco-lumbar ROM, No paraspinal muscle tenderness, No thoracic spinal tenderness and No lumbar spinal tenderness Pelvis: no pain with anterior-posterior compression and no pain with lateral compression Skin: General skin exam: elasticity normal and turgor normal Neuro: General: oriented to person, oriented to place, oriented to time, patient oriented x3, gait normal, tone normal, moves all extremities, Normal light touch and pain sensation, no meningeal signs, no focal motor deficits, CN's II-XI intact bilaterally and deep tendon reflexes 2+ bilaterally Cranial nerves: Yes Equal, round and reactive pupils present Cognition (Neuro): normal cognition Motor exam (neuro): 5/5 motor strength present throughout, Normal motor muscle tone present throughout and Motor abnormalities not present Sensory Exam: Normal double simultaneous stimulation for sensation Extrem: General: Yes full ROM, Yes no pedal edema and Yes no calf tenderness Psych: Mental Status: mental status grossly normal Affect: normal affect Thought process: Normal thought process present Medications Administered Discontinued Medications Generic Name Dose Route Start Last Admin Trade Name Freq PRN Reason Stop Dose Admin Acetaminophen 650 mg 12/06/23 11:38 12/06/23 11:54 Acetaminophen 325 Mg Tablet PO 12/06/23 11:39 650 mg ONCE ONE Administration Cyclobenzaprine HCl 5 mg 12/06/23 13:30 12/06/23 14:01 Cyclobenzaprine Hcl 5 Mg Tablet PO 12/06/23 13:31 5 mg ONCE ONE Administration Iohexol 85 ml 12/06/23 11:31 12/06/23 11:32 Iohexol 350 Mg/Ml 100 Ml Infus..Btl IV 12/06/23 11:32 85 ml ONCE ONE Administration Ketorolac Tromethamine 15 mg 12/06/23 13:30 12/06/23 14:02 Ketorolac Tromethamine 15 Mg/Ml Vial IVPUSH 12/06/23 13:31 15 mg ONCE ONE Administration Lidocaine 2 patch 12/06/23 13:31 12/06/23 14:05 Lidocaine 4 % Patch Adh..Patch TRANSDERMA 12/06/23 13:32 2 patch ONCE ONE Administration Protocol Medical Decision Making Medical Decision Making MDM Narrative: 10:00 Patient is an 78-year-old male with history of CVA, HTN, kidney stones presenting to the emergency department with complaint of bilateral mid back pain radiating through to abdomen since last night. On exam patient is awake, A+Ox3, BP elevated, improved while in the ED, VS otherwise WNL, afebrile, normal neurological exam without focal deficits, physical exam findings as above. Given reported symptoms and physical exam findings, initial differential includes ACS, AAA, gallbladder disease, pancreatitis, UTI/pyelonephritits, kidney stone, muscle strain. Do not suspect sepsis at this time. Plan: EKG, labs, CXR, CT abdomen/pelvis Labs notable for mild leukocytosis with left shift, elevated BUN which appears to be baseline, no other significant electrolyte abnormalities, normal LFTs and bilirubin, troponin 5.7 initially, will repeat. EKG shows sinus tachycardia at 103 bpm. HEART score of 4. No evidence of infection on urinalysis. X-ray chest notable for moderate thoracic spine degeneration without acute compression injury, lungs clear, small right lower lobe nodule with recommended outpatient CT for follow-up. CT A/P notable for cholelithiasis without cholecystitis, bilateral nephrolithiasis without hydronephrosis, diverticulosis without diverticulitis, prostate hypertrophy, degenerative changes to lumbar spine. My interpretation is in agreement with the radiologist's interpretation. Swabs for flu and Covid negative. Very slight delta on repeat troponin, discussed case with Dr. Edward who feels patient is stable for discharge home. Return precautions discussed at bedside with patient and daughter. Will prescribe cyclobenzaprine and topical lidocaine patches for pain, advised patient to follow-up with his primary care provider. Patient verbalized understanding of and agreement with plan. Differential Diagnosis Differential Diagnoses: The differential diagnosis associated with the presentation includes As per MDM. Admission/Observation Consideration of admission/observation: Escalation of care including admission/observation considered Lab Data [facility] Lab Attestation statement: I reviewed the patient's lab results. As per MDM. 12/06/23 10:21 12/06/23 10:21 Labs: Lab Results 12/06/23 12/06/23 12/06/23 Range/Units 10:21 10:25 13:55 WBC 13.8 H (4.8-10.8) X10*3/uL RBC 4.63 (4.60-5.80) X10*6/uL Hgb 15.5 (14.0-18.0) g/dl Hct 43.2 (42.0-52.0) % MCV 93.3 (80.0-98.0) fL MCH 33.5 H (27.0-33.0) pg MCHC 35.9 (31.0-36.0) g/dl RDW 11.8 (11.0-16.0) % Plt Count 189 (160-400) X10*3/uL MPV 10.3 (9.4-12.4) fL Immature Gran % (Auto) 0.4 (0.0-0.4) % Neut % (Auto) 90.4 H (45-73) % Lymph % (Auto) 4.4 L (20-40) % [place] % (Auto) 4.6 (2-11) % Eos % (Auto) 0.1 (0-4) % Baso % (Auto) 0.1 (0-2) % Lymph # (Auto) 0.6 L (1.2-4.9) X10*3/uL [place] # (Auto) 0.6 (0.1-1.2) X10*3/uL Eos # (Auto) 0.0 (0.0-0.4) X10*3/uL Baso # (Auto) 0.0 (0.0-0.2) X10*3/uL Abs Immat Gran (auto) 0.06 H (0.00-0.03) X10*3/uL Absolute Neuts (auto) 12.5 H (2.0-8.3) x10*3/uL Absolute Nucleated RBC 0.000 (0.0-0.012) X10*3/uL Nucleated RBC % (auto) 0.0 (0.0-0.2) /100WBC Smear Tech's Comments VERIFIED PT 10.9 L (11.1-13.3) SEC INR 0.9 (0.9-1.1) Sodium 139 (135-145) mmol/L Potassium 4.3 (3.3-5.1) mmol/L Chloride 107 (96-108) mmol/L Carbon Dioxide 22 (22-29) mmol/L Anion Gap 14 (12-20) BUN 22 H (9-16) mg/dL Creatinine 1.24 (0.5-1.4) mg/dL Estim Creat Clear Calc 42.8 Estimated GFR 56 Random Glucose 144 H (60-115) mg/dL Calcium 9.3 (8.4-10.2) mg/dL Total Bilirubin 0.4 (0.0-1.0) mg/dL AST 34 (5-37) U/L ALT 36 (0-40) U/L Alkaline Phosphatase 112 (39-117) U/L Troponin I High Sens 5.7 10.8 D (<3.5-35.0) ng/L Total Protein 7.6 (6.5-8.0) g/dL Albumin 4.4 (3.5-5.0) g/dL Urine Color Yellow Urine Appearance Clear Urine pH 6.0 (5.0-9.0) Ur Specific [place] 1.020 (1.005-1.025) Urine Protein Negative (Neg-Trace) mg/dL Urine Glucose (UA) Negative (Negative) mg/dL Urine Ketones Negative (Negative) mg/dL Urine Blood Negative (Negative) Urine Nitrite Negative (Negative) Ur Leukocyte Esterase Negative (Negative) COVID-19 (DAVID) Negative (Negative) COVID-19 Clin Com See Note Influenza Type A (JENIFER) Negative (Negative) Influenza Type B (JENIFER) Negative (Negative) Influenza A & B Note See Note Independent Interpretation I performed an independent interpretation of an: EKG (sinus tachycardia, rate 103bpm, normal GA interval and QTc, T wave inversion in V1), Plain X-Ray and CT Scan Interpretation: X-ray chest notable for moderate thoracic spine degeneration without acute compression injury, lungs clear, small right lower lobe nodule with recommended outpatient CT for follow-up CT A/P notable for cholelithiasis without cholecystitis, bilateral nephrolithiasis without hydronephrosis, diverticulosis without diverticulitis, prostate hypertrophy, degenerative changes to lumbar spine Radiology Impression Discussion of test interpretation with radiology: I have reviewed the radiologist's reading. Radiologist Impression: XR/XR chest 2V IMPRESSION: There is no acute finding here. Moderate degeneration in the thoracic spine without acute compression injury. The lung sim are grossly clear. No effusion. Cannot exclude a small nodule in the right lower lung zone 4-[address] for full evaluation. This may be done on an outpatient basis. CT/CT abdomen pelvis w IV con IMPRESSION: 1. Cholelithiasis without evidence of cholecystitis. 2. Bilateral nephrolithiasis without hydroureteronephrosis. 3. Diverticulosis without diverticulitis. 4. Prostatic hypertrophy. 5. 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 External Record Review External record reviewed: Inpatient record, Office record and Outpatient record Prescription Management I considered prescription management with: Pain Medication and Other Scores Heart Score History: -0- slightly suspicious ECG: -1- non specific repolarization disturbance Age: -2- > or = 65 Risk factory: -1- 1 or 2 risk factors Troponin: -0- < or = normal limit Score: 4 Risk: 16.6% Discharge Plan Discharge Clinical Impression: Back pain Patient Disposition: Home, Self-Care Instructions: Back Pain (ED) Additional Instructions: You were evaluated in the emergency department today for back pain. Your evaluation, including labs, EKG, chest x-ray, CT scan of your abdomen and pelvis, urinalysis and swabs for flu and Covid did not show signs of medical conditions requiring emergent intervention at this time. We recommended that you use ibuprofen or Tylenol per package directions every 6 hours as needed for pain. If necessary, you can alternate these medications so that you take one medication every 3 hours. For instance, at noon take ibuprofen, then at 3:00 p.m. take Tylenol, then at 6:00 p.m. take ibuprofen. You have been prescribed a muscle relaxer which you may take every 8 hours as needed for spasms. You have been prescribed 5% topical lidocaine patches which you can wear for up to 12 hours in a 24 hour period. Do not apply heat directly over the patches. Please schedule an appointment for follow-up with your primary care physician this week for further evaluation of your symptoms. Return to the emergency department if you experience worsening back pain, chest pain, palpitations, difficulty breathing, shortness of breath, difficulty walking, fevers, numbness, tingling, incontinence, groin numbness or tingling, or any other concerning symptoms. Prescriptions: New cyclobenzaprine 5 mg tablet 5 mg PO TID PRN (Reason: muscle spasm) Qty: 10 0RF lidocaine 5 % adhesive patch,medicated 1 patch topical DAILY Qty: 15 0RF Rx Instructions: leave on most painful area for up to 12 hrs No Action fluorometholone 0.1 % drops,suspension 1 drp ophthalmic (eye) BID PRN (Reason: BLURRY VISION) amlodipine 5 mg Tablet 5 mg PO DAILY Qty: 30 0RF Protocol: Hold for SBP< HOLD for SBP < : 90 cefuroxime axetil 500 mg tablet 500 mg PO BID Qty: 14 0RF tamsulosin 0.4 mg capsule 0.4 mg PO BEDTIME Qty: 30 0RF pyridoxine (vitamin B6) 100 mg tablet 100 mg PO DAILY Qty: 90 1RF
--- NOTE | 2023-12-06 10:02 | ECG_ITS ---
Test Reason : BACK PAIN Blood Pressure : / mmHG Vent. Rate : 103 BPM Atrial Rate : 103 BPM P-R Int : 172 ms QRS Dur : 088 ms QT Int : 340 ms P-R-T Axes : 037 -47 004 degrees QTc Int : 445 ms Sinus tachycardia Left axis deviation Minimal voltage criteria for LVH, may be normal variant ( R in aVL ) Possible Anterior infarct (cited on or before 16-JUN-2023) Abnormal ECG When compared with ECG of 16-JUN-2023 23:55, No significant change was found Referred By: Chinyere Meadows Electronically Signed By:Jeremi Edward
[2023-12-06 10:49] LABS: Basophils Percent Auto 0.1 % (0-2); Eosinophils Percent Auto 0.1 % (0-4); Hematocrit 43.2 % (42.0-52.0); Hemoglobin 15.5 g/dl (14.0-18.0); Imm Gran Abs Auto 0.06 X10*3/uL (0.00-0.03); Imm Gran Pct Auto 0.4 % (0.0-0.4); Lymphocytes Absolute Auto 0.6 X10*3/uL (1.2-4.9); Lymphocytes Percent Auto 4.4 % (20-40); MANUAL DIFF FLAG SCAN; Mean Corpuscular HGB Conc 35.9 g/dl (31.0-36.0); Mean Corpuscular Hemoglobin 33.5 pg (27.0-33.0); Mean Corpuscular Volume 93.3 fL (80.0-98.0); Mean Platelet Volume 10.3 fL (9.4-12.4); Monocytes Absolute Auto 0.6 X10*3/uL (0.1-1.2); Monocytes Percent Auto 4.6 % (2-11); Neutrophils Absolute Auto 12.5 x10*3/uL (2.0-8.3); Neutrophils Percent Auto 90.4 % (45-73); Platelet Count 189 X10*3/uL (160-400); Red Blood Count 4.63 X10*6/uL (4.60-5.80); Red Cell Distribution Width 11.8 % (11.0-16.0); SCAN SMEAR FLAG 1; White Blood Count 13.8 X10*3/uL (4.8-10.8)
[2023-12-06 10:50] LABS: Appearance Urine Clear; Color Urine Yellow; Glucose Urine UA Negative (Negative); Leukocyte Esterase Urine Negative (Negative); Nitrite Urine Negative (Negative); Urine Blood Negative (Negative); Urine Ketones Negative (Negative); Urine Protein Negative (Neg-Trace)
[2023-12-06 11:06] LABS: INTERNATIONAL NORM RATIO 0.9 (0.9-1.1); Prothrombin Time 10.9 SEC (11.1-13.3)
[2023-12-06 11:07] LABS: Alanine Aminotransferase 36 U/L (0-40); Albumin Level 4.4 g/dL (3.5-5.0); Alkaline Phosphatase 112 U/L (39-117); Anion Gap 14 (12-20); Aspartate Amino Transferase 34 U/L (5-37); Bilirubin Total 0.4 mg/dL (0.0-1.0); Blood Urea Nitrogen 22 mg/dL (9-16); Calcium 9.3 mg/dL (8.4-10.2); Carbon Dioxide 22 mmol/L (22-29); Chloride 107 mmol/L (96-108); Creatinine Clr Calc Pharmacy 42.8; Estimated Glomerular Filt Rate 56; Glucose Random 144 mg/dL (60-115); Potassium 4.3 mmol/L (3.3-5.1); Sodium 139 mmol/L (135-145); Total Protein 7.6 g/dL (6.5-8.0)
[2023-12-06 11:08] LABS: Troponin-I High Sensitivity 5.7 ng/L (<3.5-35.0)
[2023-12-06 11:16] LABS: SLIDE REVIEW VERIFIED
[2023-12-06] MEDS: iohexoL 350 MG/ML 100 ML INFUS..BTL 85 ML IV (11:32)
[2023-12-06] MEDS: Acetaminophen 325 MG TABLET 650 MG PO (11:54)
[2023-12-06 13:00] VITALS: BP 154/82; PULSE 100; RESP 18; TEMP 36.9; O2SAT 96
[2023-12-06] MEDS: Cyclobenzaprine HCl 5 MG TABLET PO (14:01)
[2023-12-06] MEDS: Ketorolac Tromethamine 15 MG/ML VIAL IVPUSH (14:02)
[2023-12-06] MEDS: Lidocaine 4 % Patch ADH..PATCH 2 PATCH TRANSDERMA (14:05)
[2023-12-06 14:21] LABS: COVID-19 Test Negative (Negative); IDNOW Serial# 08D9AD1C; IDNOW Serial# 152EDE1D; Influenza A Negative (Negative); Influenza B2 Negative (Negative)
[2023-12-06 14:22] LABS: Troponin-I High Sensitivity 10.8 ng/L (<3.5-35.0)
== END 2023-12-06 15:03 | disposition home or self-care (01) ==
PROVIDERS: Registered Nurse Emergency; Emergency Provider Student in an Organized Health Care Education/Training Program; PCP Internal Medicine
DX: M54.50 Low back pain, unspecified (principal); K57.30 Diverticulosis of large intestine without perforation or abscess without bleeding; R00.0 Tachycardia, unspecified; R10.9 Unspecified abdominal pain; I10 Essential (primary) hypertension; Z11.52 Encounter for screening for COVID-19; Z79.899 Other long term (current) drug therapy
CPT/HCPCS: 36415; 71046; 74177; 80053; 81003; 84484; 85025; 85610; 87502; 87635; 93005; 96374; 99284; J1885; Q9967

== ENCOUNTER → 2023-12-06 10:02 | Outpatient (BNV) | payer MEDICARE, SELFPAY | PROVIDERS: Emergency Provider Student in an Organized Health Care Education/Training Program; PCP Internal Medicine; Visit Provider Internal Medicine Cardiovascular Disease | DX: R94.31 Abnormal electrocardiogram [ECG] [EKG] (principal) | CPT/HCPCS: 93010 ==